=== PATIENT | female | born 1935 | race Caucasian/White ===

== ENCOUNTER → 2019-04-28 | Outpatient (CLI) | payer MEDICARE ==
[~2019-04-28] MED LIST: ASPI81TA85 PO; ATEN50TA2 PO; CALC600T31 PO; HYDR12.55 PO; MULT1TAB8 PO; POTA20TA4 PO; VITA-183 PO; ZYRT10CA PO
--- NOTE | 2019-04-28 18:01 | REP ---
Clinical: Left lower extremity pain and swelling . Technique: Pope scale and color Doppler evaluation using linear high frequency transducer. Findings: Ultrasound examination of the left lower extremity deep venous structures from the common femoral vein to the popliteal vein demonstrates normal compressibility flow and wave patterns in response to respiration and augmentation. There is no evidence for deep venous thrombosis. Impression: No evidence for deep venous thrombosis. Electronically Signed by Don Loza MD 04/28/2019 05:53 P
== END ==
LOC: M RAD 16:19
PROVIDERS: ATTEND Physician Assistant
DX: R22.42 Localized swelling, mass and lump, left lower limb (principal)

== ENCOUNTER → 2019-05-13 | Outpatient (CLI) | payer MEDICARE ==
--- NOTE | 2019-05-13 17:39 | REP ---
Urinary tract sonogram: History: Gross hematuria. Comparison: No comparison study. Findings: Scanning at the level of the urinary bladder shows no abnormality. Renal cortical echogenicity pattern is normal bilaterally and contours are smooth. There is no evidence of hydronephrosis, cyst, mass, or calculus in either kidney. The right kidney measures 10.2 x 6.0 x 4.8 cm. In the lower pole right kidney there is a 6 mm echogenic focus with acoustic shadowing which may be a intrarenal calculus. Left renal dimensions are 10.3 x 5.3 x 4.0 cm. In the lower pole left kidney there is an equivocal 2.3 mm echogenic focus without shadowing. This could be a tiny calculus. Impression: Possible intrarenal calculi. No hydronephrosis. Otherwise negative urinary tract sonography. Electronically Signed by Jas Mujica MD 05/13/2019 05:30 P
--- NOTE | 2019-05-13 17:44 | REP ---
Pelvic ultrasound for gross hematuria: Comparison is 03/12/2019. The study is performed with transabdominal imaging. The patient declined endovaginal imaging. The bladder is adequately distended. The uterus measures 544 x 3.4 x 5.0 centimeters and is atrophic and suboptimally demonstrated. There appear to be echogenic masses replacing the myometrium, compatible with degenerating fibroids. However, myometrial masses of other etiology cannot be excluded. The endometrium could not be visualized. The ovaries are not visualized. No definite adnexal masses are identified . Impression: Suboptimal study. I would recommend a repeat study including endovaginal ultrasound or pelvic MRI. Electronically Signed by Jorge Turner MD 05/13/2019 05:37 P
== END ==
LOC: M RAD 13:23
PROVIDERS: ATTEND Internal Medicine
DX: R31.0 Gross hematuria (principal); N92.5 Other specified irregular menstruation

== ENCOUNTER → 2019-05-17 | Outpatient (CLI) | payer MEDICARE ==
[2019-05-17 17:56] LABS: APPEARANCE, URINE MANUAL TURBID (CLEAR); BILIRUBIN, URINE MANUAL NEGATIVE (NEGATIVE); BLOOD URINE MANUAL POSITIVE (NEGATIVE); COLOR, URINE MANUAL RED (YELLOW); GLUCOSE, URINE (UA) MANUAL NEGATIVE (NEGATIVE); KETONE, URINE MANUAL NEGATIVE (NEGATIVE); LEUKOCYTE ESTERASE, URINE MAN POSITIVE (NEGATIVE); NITRITE, URINE MANUAL OBSCURED (NEGATIVE); PROTEIN, URINE MANUAL 3+ mg/dL (NEGATIVE); SPECIFIC GRAVITY,URINE MANUAL 1.024 (1.002-1.035); UROBILINOGEN, URINE MANUAL NORMAL (NORMAL)
[2019-05-17 17:57] LABS: BACTERIA, URINE SMALL AMOUNT; HYALINE CAST, URINE NONE SEEN /lpf (0-1); MUCUS, URINE LARGE AMOUNT (NEGATIVE); RBC, URINE TNTC /hpf (0-3); SQUAMOUS EPITHELIAL CELL URINE SMALL AMOUNT /hpf (SMALL AMT); TRIPLE PHOSPHATE CRYSTAL,URINE SMALL AMOUNT /hpf; WBC, URINE TNTC /hpf (0-3)
[2019-05-17 17:58] LABS: AMORPHOUS SEDIMENT, URINE MOD AMOUNT (NEGATIVE)
[2019-05-17 17:58] LABS: BLOOD UREA NITROGEN 15 MG/DL (7-18); CARBON DIOXIDE LEVEL 30 MEQ/L (21-32); CHLORIDE LEVEL 93 MEQ/L (98-107); CREATININE FOR GFR 0.77 MG/DL (0.55-1.30); GLOMERULAR FILTRATION RATE > 60.0 (>32); GLUCOSE, FASTING 118 MG/DL (70-100); POTASSIUM SERUM 3.7 MEQ/L (3.5-5.1); SODIUM LEVEL 131 MEQ/L (136-145)
== END ==
LOC: M SMT 14:12
PROVIDERS: ATTEND Nurse Practitioner Women's Health
DX: R31.0 Gross hematuria (principal)
CPT/HCPCS: 80048; 81000; 87086; 88108; G0463

== ENCOUNTER → 2019-05-24 | Outpatient (CLI) | payer MEDICARE ==
[~2019-05-24] MED LIST changes: +ISOVUE-370 76% 100ML VIAL (Q9967) As Ordered ONE
--- NOTE | 2019-05-24 14:54 | REP ---
CT of the abdomen and pelvis without and with IV contrast. After IV contrast, multiphase scanning is performed. A CT urogram protocol. I suspect there is a mass arising from the superior wall of the bladder measuring approximately three point 0 cm in diameter and there are calcifications within this mass. There is a 0.3 cm nonobstructive right renal lower pole calculus. No left renal calculi are identified. There are no solid renal masses. There is a 0.7 cm left renal lower pole simple cyst. There is mild bilateral diffuse renal cortical scarring. There is no perinephric stranding. There is no hydronephrosis. The adrenals are unremarkable. The visualized lower lung wheeler demonstrate atelectasis at the inferior tip of the lingula but are otherwise unremarkable. The hepatic parenchyma, gallbladder, pancreas, spleen, abdominal aorta, bowel and mesentery are unremarkable. There is no retroperitoneal adenopathy or mass. Pelvis: The uterus and adnexa are unremarkable. There is no adenopathy or ascites. The pelvic bowel loops are unremarkable. There are no lytic, blastic or destructive skeletal changes. There is grade II compression of the L1 vertebral body and grade 1 retrolisthesis of L1. There is degenerative disc disease throughout the lumbar spine. Impression: 3 cm mass arising from the dome of the bladder as described. Nonobstructive right renal calculus. Small left renal cyst. Mild bilateral renal cortical scarring. No renal solid masses. No hydronephrosis. No retroperitoneal, mesenteric or abdominal adenopathy or ascites. Electronically Signed by Jorge Turner MD 05/24/2019 02:46 P
== END ==
LOC: M RAD 13:16
PROVIDERS: ATTEND Nurse Practitioner Women's Health
DX: R31.0 Gross hematuria (principal); N32.89 Other specified disorders of bladder; N20.0 Calculus of kidney; N28.1 Cyst of kidney, acquired
CPT/HCPCS: 74178; Q9967

== ENCOUNTER → 2019-05-28 | Outpatient (REF) | payer MEDICARE ==
[~2019-05-28] MED LIST changes: +BAYE325T13 PO; +CALC1TAB42 PO; +HYDR25TAB PO; -ISOVUE-370 76% 100ML VIAL (Q9967) As Ordered ONE; +MACR100C43 PO; +NITR100C2 PO; +POTA10TA14 PO
[2019-05-28 13:16] LABS: RENAL EPITHELIAL CELLS, URINE SMALL AMOUNT /hpf; SQUAMOUS EPITHELIAL CELL URINE SMALL AMOUNT /hpf (SMALL AMT)
[2019-05-28 13:17] LABS: AMORPHOUS SEDIMENT, URINE MOD AMOUNT (NEGATIVE); BACTERIA, URINE MOD AMOUNT; HYALINE CAST, URINE NONE SEEN /lpf (0-1); TRIPLE PHOSPHATE CRYSTAL,URINE SMALL AMOUNT /hpf
[2019-05-28 13:18] LABS: WBC, URINE TNTC /hpf (0-3)
== END ==
LOC: M SMT 12:51
PROVIDERS: ATTEND Specialist
DX: R31.0 Gross hematuria (principal)
CPT/HCPCS: 51700; 52000; 87086; G0463

== ENCOUNTER → 2019-06-11 | Outpatient (REF) | payer MEDICARE | LOC: M SMT 16:47 | PROVIDERS: ATTEND Urology | DX: R31.0 Gross hematuria (principal) | CPT/HCPCS: 51701; 81002; G0463 ==

== ENCOUNTER 2019-06-12 07:00 | Inpatient (IN) | payer MEDICARE ==
[~2019-06-12] VITALS: Ht 154.9 cm; Wt 87.5 kg
[~2019-06-12 07:00] MED LIST changes: -BAYE325T13 PO; -CALC1TAB42 PO; -HYDR25TAB PO; -MACR100C43 PO; -NITR100C2 PO; -POTA10TA14 PO
[2019-06-12] MEDS ORDERED: NITR100C2 PO (07:18)
[2019-06-12] MEDS ORDERED: HYDR25TAB PO (07:18)
[2019-06-12] MEDS ORDERED: LIDOCAINE 2% 5ML JELLY UROJET TOP ONE (07:30)
--- NOTE | 2019-06-12 08:13 | REP ---
AP PORTABLE CHEST: 06/12/2019. Clinical history: Altered mental status. Findings: No prior study. Lungs hypoinflated on this frontal view. There is left ventricular enlargement and left atrial enlargement with some moderate cardiomegaly. Venous hypertension noted without grupo edema, dense consolidation or visible effusion. Degenerative changes in the spine and shoulders. The aorta is ectatic and tortuous. Impression: 1. Cardiomegaly with left atrial and ventricular enlargement, venous hypertension but no grupo edema, dense consolidation or definite effusion. Electronically Signed by Heath Riddle MD 06/12/2019 09:35 P
[2019-06-12 08:25] LABS: BASO % 0.3 % (0.0-1.0); EOS % 0.1 % (0.0-3.0); HEMATOCRIT 31.8 % (36.0-47.0); HEMOGLOBIN 11.2 g/dl (12.0-15.5); LYMPH # 0.4 10^3/uL (1.5-4.5); LYMPH % 4.2 % (24.0-44.0); MEAN CORPUSCULAR HEMOGLOBIN 28.1 pg (27.0-33.0); MEAN CORPUSCULAR HGB CONC 35.2 g/dl (32.0-36.5); MEAN CORPUSCULAR VOLUME 79.7 fl (80.0-96.0); MONO # 0.8 10^3/uL (0.0-0.8); MONO % 9.1 % (0.0-5.0); NEUTROPHILS # 7.5 10^3/uL (1.8-7.7); NEUTROPHILS % 85.3 % (36.0-66.0); PLATELET COUNT, AUTOMATED 340 10^3/uL (150-450); RED BLOOD COUNT 3.99 10^6/uL (4.00-5.40); WHITE BLOOD COUNT 8.8 10^3/uL (4.0-10.0)
[2019-06-12] MEDS ORDERED: CIPROFLOXACIN 400 MG in APPROPRIATE DILUENT 1 EA IV ONE (09:00)
[2019-06-12] MEDS ORDERED: NS 500 ML IV ONE (09:00)
--- NOTE | 2019-06-12 09:00 | REP ---
CT BRAIN WITHOUT CONTRAST: 06/12/2019. Clinical history: Altered mental status. Comparison: 01/23/2012 Findings: Contrast images show lateral ventricles midline, symmetric, mildly dilated proportionate to the diffuse cerebral atrophy, all of this age appropriate. Sulcal prominence and cortical atrophy mildly progressed since the prior study seven years ago. Basal ganglia is symmetric with some heterogeneous periventricular deep central and subcortical white matter changes bilaterally suggesting chronic small vessel ischemic disease of aging. 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 No intracranial hemorrhage, acute infarct, mass or mass effect. Brainstem and cerebellum are unremarkable. Basal cisterns intact. Mastoids and sinuses grossly intact. Calvarium is unremarkable. Impression: 1. Ventriculomegaly and cortical atrophy, proportionate and age appropriate. 2. Chronic small vessel white matter ischemic changes. 3. No acute infarct, intracranial hemorrhage, mass, mass effect or edema. No extra-axial fluid collection. 4. Skull base and calvarium without acute bony finding. Electronically Signed by Heath Riddle MD 06/12/2019 09:37 P
[2019-06-12 09:07] LABS: AMPHETAMINES LEVEL URINE NEGATIVE (NEGATIVE); BARBITURATES URINE NEGATIVE (NEGATIVE); BENZODIAZEPINES URINE NEGATIVE (NEGATIVE); CANNABINOIDS URINE NEGATIVE (NEGATIVE); COCAINE METABOLITE URINE NEGATIVE (NEGATIVE); METHADONE URINE NEGATIVE (NEGATIVE); OPIATES URINE NEGATIVE (NEGATIVE); PHENCYCLIDINE URINE NEGATIVE (NEGATIVE)
[2019-06-12 09:11] LABS: ALBUMIN 2.9 GM/DL (3.2-5.2); ALT/SGPT 12 U/L (12-78); BILIRUBIN,DIRECT 0.2 MG/DL (0.0-0.2); BILIRUBIN,TOTAL 0.6 MG/DL (0.2-1.0); BLOOD UREA NITROGEN 21 MG/DL (7-18); CALCIUM LEVEL 9.7 MG/DL (8.8-10.2); CARBON DIOXIDE LEVEL 30 MEQ/L (21-32); CHLORIDE LEVEL 76 MEQ/L (98-107); CK-MB VALUE MASS 2.7 NG/ML (<3.6); CPK CREATINE PHOSPHOKINASE 87 U/L (26-192); CREATININE FOR GFR 0.99 MG/DL (0.55-1.30); GLOMERULAR FILTRATION RATE 57.2 (>32); GLUCOSE, FASTING 114 MG/DL (70-100); POTASSIUM SERUM 3.2 MEQ/L (3.5-5.1); SODIUM LEVEL 118 MEQ/L (136-145); THYROID STIMULATING HORMONE 0.782 uIU/ML (0.358-3.740); TOTAL PROTEIN 6.5 GM/DL (6.4-8.2); TROPONIN I < 0.02 NG/ML (< 0.10)
[2019-06-12 09:15] LABS: ACETAMINOPHEN LEVEL < 2.0 UG/ML (10.0-30.0); FREE T4 1.76 NG/DL (0.76-1.46); SALICYLATE LEVEL < 1.7 MG/DL (5.0-30.0)
[2019-06-12 09:16] LABS: ETHYL ALCOHOL (ETHANOL) < 0.003 % (0.000-0.010)
[2019-06-12 09:27] LABS: OSMOLALITY SERUM 247 MOSM/KG (280-301)
[2019-06-12] MEDS ORDERED: PIPERACILLIN/TAZOBACTAM SOD 4.5 GM in D5W MINI-BAG PLUS 50 ML IV ONE (09:30)
[2019-06-12] MEDS ORDERED: KCL 10MEQ/100ML SWI (KRUN) 10 MEQ in APPROPRIATE DILUENT 1 EA IV ONE (09:30)
[2019-06-12] MEDS ORDERED: ISOVUE-370 76% 100ML VIAL (Q9967) As Ordered ONE (09:30)
[2019-06-12 09:31] LABS: MAGNESIUM LEVEL 1.9 MG/DL (1.8-2.4)
[2019-06-12 09:32] LABS: CREATININE,RANDOM URINE 25.9 MG/DL
[2019-06-12] MEDS ORDERED: CALC1TAB42 PO (09:52)
[2019-06-12] MEDS ORDERED: BAYE325T13 PO (09:52)
[2019-06-12] MEDS ORDERED: POTA10TA14 PO (09:53)
[2019-06-12] MEDS ORDERED: MACR100C43 PO (09:54)
--- NOTE | 2019-06-12 11:06 | REP ---
CT ABDOMEN AND PELVIS WITHOUT AND WITH CONTRAST: 06/12/2019. Clinical history: Hematuria. Comparison 05/24/2019 CT. Technique: Precontrast imaging through the abdomen pelvis followed by a bolus of 100 mL of Isovue 370 and scanning through the abdomen pelvis at equilibrium and delayed phases. Coronal and sagittal reconstructions with 3-D surface renderings with reconstruction rotated about the longitudinal axis of the body. Findings: CT abdomen: The lung bases show dependent atelectatic changes and some curvilinear fibrosis in the medial basal segment of the left lobe. Heart is enlarged with left atrial ventricular enlargement. No pericardial thickening or effusion. Small hiatal hernia suspected. The liver and spleen are without acute findings. There is no biliary dilatation. Gallbladder without calcified stone. Pancreas shows no mass or ductal dilatation. No peripancreatic inflammatory change. Trace amount of ascites about the liver and in the peroneal gutter on the left. There has developed pancolitis in the interval from the CT [address] slices shows no perforation or free air. No visible abscess. Small bowel loops are not dilated. The aorta shows atherosclerotic calcifications without aneurysm. No periaortic pathologic sized adenopathy. Adrenal glands unchanged. The cortical calcification seen lower pole right kidney unchanged. There is no hydronephrosis, solid renal mass or hydroureter. No ureteral stone. Bones unchanged. CT pelvis: Cook catheter in the bladder which is collapsed. There is a small amount of contrast in the bladder and evidence of a bladder wall mass with poor distension of the bladder. There is some air within the bladder which may be due to Cook insertion. The masses along the superior aspect of the bladder with thickening of that bladder wall up to 2 cm, it is irregular in shape 3.0 x 5.0 x 5.5 cm overall. Ureters are not abnormally dilated in the pelvis. No definite stone. Colitis in the distal left colon, sigmoid and rectum also with filtration of pericolonic fat. Impression: 1. Bladder wall mass superiorly which is to the right of midline and about 3.0 x 5.0 x 5.5 cm in greatest diameters. There are irregular margins. No change from the CT 3 weeks ago for this finding. 2. Some air in the bladder, likely related to Cook insertion and small amount of contrast. Findings highly suspicious for a bladder malignancy. This is the non-dependent portion of the bladder. 3. There is no hydronephrosis, hydroureter, renal or ureteral calculi. Calcification in the right kidney is in the cortex not the collecting system but unchanged. 4. Interval development of diffuse colitis, inflammatory changes in the mesentery. There is some ascites. No perforation or free air. Electronically Signed by Heath Riddle MD 06/12/2019 09:48 P
--- NOTE | 2019-06-12 11:08 | HPEPDOC ---
General Date of Admission 06/12/19 Date of Service: Jun 12, 2019 Chief Complaint The patient is a 83-year-old female admitted with a reason for visit of Dizziness/Weakness. Source: RN/MD Exam Limitations: Clinical conditions Timing/Duration: Unsure Severity: Other (unknown) Associated Symptoms: Unobtainable, Other History of Present Illness This is 83 years old white female with past medical history of possibly hypertension, hyperlipidemia, unable to obtained history as nobody is available and patient is altered mental status. As per ED physician, Dr. Pope. She obtained history from her son. He takes care of for her and she was recently diagnosed with UTI on for was being treated. Patient was found to be on the floor for unknown time. And has altered mental status. No other history is available. Patient being admitted with the diagnosis of hyponatremia and UTI, unknown history of drug abuse or alcohol abuse or taking illicit medications Home Medications Scheduled Aspirin (Aspirin) 325 Mg Tablet, 325 MG PO DAILY, (Reported) Atenolol (Atenolol) 50 Mg Tab, 50 MG PO DAILY, (Reported) Calcium Carbonate/Vitamin D3 (Calcium 500-Vit D3 600 Tablet) 1 Each Tablet, 1 TAB PO BID, (Reported) Hydrochlorothiazide (Hydrochlorothiazide) 25 Mg Tablet, 25 MG PO DAILY, (Reported) Multivitamin (Multi-Vitamin Daily) 1 Tab Tab, 1 TAB PO DAILY, (Reported) Nitrofurantoin Monohyd/M-Cryst (Macrobid 100 mg Capsule) 100 Mg Capsule, 100 MG PO BID, (Reported) STARTED 06/11 Potassium Chloride (Potassium Chloride) 10 Meq Tablet.er, 20 MEQ PO DAILY, (Reported) Allergies Coded Allergies: No Known Allergies (Unverified , 06/12/19) Past Medical History Medical History Hypertension, hyperlipidemia Surgical History Not available Family History Significant Family History: Other Social History * Smoker: other Alcohol: other Drugs: other (, unknown) A-FIB/CHADSVASC A-FIB History Current/History of A-Fib/PAF?: No Review of Systems Constitutional: Reports: Other (, unable to obtained review of systems secondary to patient's physical and mental status) Physical Examination General Exam: Positive: Other (, lethargic, not does not respond to vocal or tactile stimuli) ENT Exam: Positive: Atraumatic, Mucous membr. moist/pink Neck Exam: Positive: Supple Chest Exam: Positive: Clear to auscultation, Normal air movement Heart Exam: Positive: Rate Normal, Normal S1, Normal S2 Abdomen Exam: Positive: Normal bowel sounds Extremity Exam: Positive: Normal pulses Skin Exam: Positive: Nl turgor and temperature Neuro Exam: Positive: Other (, unable to do neuro exam secondary to patient mental status) Vital Signs Vital Signs Date Time Temp Pulse Resp B/P (MAP) Pulse Ox O2 Delivery O2 Flow Rate FiO2 06/12/19 08:51 99.4 06/12/19 07:20 100 20 163/72 (102) 96 Room Air Laboratory Data Labs 24H Laboratory Tests 2 06/12/19 08:10: Urine Random Osmolality 296L, Urine Random Creatinine 25.9, Urine Random Sodium 21 06/12/19 08:11: Immature Granulocyte % (Auto) 1.0, White Blood Count 8.8, Red Blood Count 3.99L, Hemoglobin 11.2L, Hematocrit 31.8L, Mean Corpuscular Volume 79.7L, Mean Corpuscular Hemoglobin 28.1, Mean Corpuscular Hemoglobin Concent 35.2, Red Cell Distribution Width 13.2, Platelet Count 340, Neutrophils (%) (Auto) 85.3H, Lymphocytes (%) (Auto) 4.2L, Monocytes (%) (Auto) 9.1H, Eosinophils (%) (Auto) 0.1, Basophils (%) (Auto) 0.3, Neutrophils # (Auto) 7.5, Lymphocytes # (Auto) 0.4L, Monocytes # (Auto) 0.8, Eosinophils # (Auto) 0.0, Basophils # (Auto) 0.0, Nucleated Red Blood Cells % (auto) 0.0, Urine Color LARISA, Urine Appearance TURBIDH, Urine pH 7.0, Urine Specific [place] 1.008, Urine Protein 2+H, Urine Glucose (UA) NEGATIVE, Urine Ketones TRACEH, Urine Blood 3+H, Urine Nitrite NEGATIVE, Urine Bilirubin NEGATIVE, Urine Urobilinogen 0.2, Urine Leukocyte Esterase 2+H, Urine WBC (Auto) TNTCH, Urine RBC (Auto) TNTCH, Urine Hyaline Casts (Auto) 0, Urine Bacteria (Auto) 1+H, Urine Squamous Epithelial Cells 3, Urine Amorphous Sediment SMALLH, Urine Sperm (Auto) , Anion Gap 12, Glomerular Filtration Rate 57.2, Osmolality 247L, Lactic Acid Level 1.3, Calcium Level 9.7, Magnesium Level 1.9, Aspartate Amino Transf (AST/SGOT) 14, Alanine Aminotransferase (ALT/SGPT) 12, Alkaline Phosphatase 83, Total Bilirubin 0.6, Direct Bilirubin 0.2, Ammonia < 10, Total Creatine Kinase 87, Creatine Kinase MB 2.7, Creatine Kinase MB Relative Index 3.10, Troponin I < 0.02, Total Protein 6.5, Albumin 2.9L, Albumin/Globulin Ratio 0.81L, Thyroid Stimulating Hormone (TSH) 0.782, Free Thyroxine 1.76H, Salicylates Level < 1.7L, Urine Amphetamines Screen NEGATIVE, Urine Benzodiazepines Screen NEGATIVE, Urine Opiates Screen NEGATIVE, Urine Methadone Screen NEGATIVE, Acetaminophen Level < 2.0L, Urine Barbiturates Screen NEGATIVE, Urine Phencyclidine Screen NEGATIVE, Urine Cocaine Metabolite Screen NEGATIVE, Urine Cannabinoids Screen NEGATIVE, Ethyl Alcohol Level < 0.003 06/12/19 08:35: Bedside Glucose (Misc Panel) 122H 06/12/19 08:36: POC Glucose (Misc Panel) 117H, POC Sodium (Misc Panel) 115*L, POC Potassium (Misc Panel) 2.9*L, POC Chloride (Misc Panel) 75L, POC Total CO2 (Misc Panel) 28.0H, POC Blood Urea Nitrogen (Misc Panel 21, POC Ionized Calcium (Misc Panel) 4.7, POC Creatinine (Misc Panel) 1.2, POC Hematocrit (Misc Panel) 35.0L CBC/BMP Laboratory Tests 06/12/19 08:11 Red Blood Count 3.99 L, Mean Corpuscular Volume 79.7 L, Mean Corpuscular Hemoglobin 28.1, Mean Corpuscular Hemoglobin Concent 35.2, Red Cell Distribution Width 13.2, Neutrophils (%) (Auto) 85.3 H, Lymphocytes (%) (Auto) 4.2 L, Monocytes (%) (Auto) 9.1 H, Eosinophils (%) (Auto) 0.1, Basophils (%) (Auto) 0.3, Neutrophils # (Auto) 7.5, Lymphocytes # (Auto) 0.4 L, Monocytes # (Auto) 0.8, Eosinophils # (Auto) 0.0, Basophils # (Auto) 0.0 Microbiology Microbiology 06/12/19 Blood Culture, Received Pending 06/12/19 Blood Culture, Received Pending 06/12/19 Urine Culture, Received Pending Problems (1) Altered mental status Status: Acute Problem Text: Most likely secondary to delirium which is most likely secondary to UTI and hyponatremia Neuro check every 4 hours Seizures precautions Telemetry monitoring Continuous pulse ox O2 support. If pulse ox is less than 92% IV fluids normal saline at 70 mL per hour MRI of brain. If the symptoms do not resolve Neuro consult if the symptoms do not resolve (2) Hyponatremia Status: Acute Problem Text: Unknown etiology Could be secondary to UTI IV fluids normal saline at 70 mL per hour Potassium supplement already given by ED BMP every 6 hours Will slowly correct serum sodium level Monitor potassium and correct as needed Strict I and O's Nothing by mouth (3) Urinary tract infection Status: Acute Problem Text: Urine cultures ordered Patient was started on Zosyn. We'll continue the same Change in antibiotics as needed Plan / VTE VTE Prophylaxis Ordered?: Yes RAQUEL ROSEN MD Jun 12, 2019 11:08
[2019-06-12] MEDS: NS 1,000 ML IV SCH ×3 (12:09→20:02)
[2019-06-12] MEDS: ENOXAPARIN 40 MG/0.4 ML SYRINGE (J1650) SC SCH (12:35)
[2019-06-12 12:43] LABS: BLOOD UREA NITROGEN 18 MG/DL (7-18); CALCIUM LEVEL 9.2 MG/DL (8.8-10.2); CARBON DIOXIDE LEVEL 30 MEQ/L (21-32); CHLORIDE LEVEL 83 MEQ/L (98-107); CREATININE FOR GFR 0.84 MG/DL (0.55-1.30); GLOMERULAR FILTRATION RATE > 60.0 (>32); GLUCOSE, FASTING 96 MG/DL (70-100); POTASSIUM SERUM 2.7 MEQ/L (3.5-5.1); SODIUM LEVEL 122 MEQ/L (136-145)
[2019-06-12 16:00] VITALS: BP 116/58
[2019-06-12] MEDS: PIPERACILLIN/TAZOBACTAM SOD 3.375 GM in D5W MINI-BAG PLUS 50 ML IV SCH ×2 (16:16→21:45)
[2019-06-12 16:45] LABS: BLOOD UREA NITROGEN 15 MG/DL (7-18); CALCIUM LEVEL 8.7 MG/DL (8.8-10.2); CARBON DIOXIDE LEVEL 28 MEQ/L (21-32); CHLORIDE LEVEL 86 MEQ/L (98-107); CREATININE FOR GFR 0.78 MG/DL (0.55-1.30); GLOMERULAR FILTRATION RATE > 60.0 (>32); GLUCOSE, FASTING 96 MG/DL (70-100); POTASSIUM SERUM 2.8 MEQ/L (3.5-5.1); SODIUM LEVEL 124 MEQ/L (136-145)
[2019-06-12] MEDS ORDERED: POTASSIUM CHLORIDE 10 MEQ SR TABLET PO ONE (17:30)
--- NOTE | 2019-06-12 19:28 | ECGEPIP ---
[facility] - ED Test Date: 2019-06-12 Pat Name: ABIMAEL PRATT Department: Room: - Gender: Female [employer] Adjunct Professor: TC : [id number] Requested By: Geovanni Padilla Order Number: [id number] Reading MD: Geovanni Padilla Measurements Intervals [place] Rate: 79 P: 91 AR: 210 QRS: -21 QRSD: 116 T: 0 QT: 414 QTc: 475 Interpretive Statements SINUS RHYTHM WITH FIRST DEGREE AV BLOCK WITH FREQUENT SUPRAVENTRICULAR PREMATURE COMP COMPLEXES BORDERLINE LEFT AXIS DEVIATION MODERATE INTRAVENTRICULAR CONDUCTION DELAY MODERATE VOLTAGE CRITERIA FOR LVH, CONSIDER NORMAL VARIANT NONSPECIFIC T-WAVE ABNORMALITY DELAYED R WAVE PROGRESSION PROLONGED QTC NO PRIOR ECG FOR COMPARISON Electronically Signed on 06-12-2019 19:28:24 EDT by Geovanni Padilla
[2019-06-12 20:00] VITALS: BP 129/59
[2019-06-12 23:47] LABS: BLOOD UREA NITROGEN 13 MG/DL (7-18); CALCIUM LEVEL 9.4 MG/DL (8.8-10.2); CARBON DIOXIDE LEVEL 31 MEQ/L (21-32); CHLORIDE LEVEL 89 MEQ/L (98-107); CREATININE FOR GFR 0.71 MG/DL (0.55-1.30); GLOMERULAR FILTRATION RATE > 60.0 (>32); GLUCOSE, FASTING 102 MG/DL (70-100); POTASSIUM SERUM 2.9 MEQ/L (3.5-5.1); SODIUM LEVEL 125 MEQ/L (136-145)
[2019-06-13] VITALS: BP 144/66
[2019-06-13] MEDS: KCL 10MEQ/100ML SWI (KRUN) 10 MEQ in APPROPRIATE DILUENT 1 EA IV SCH ×3 (00:16→02:11)
[2019-06-13] MEDS: POTASSIUM CHLORIDE 10 MEQ SR TABLET PO SCH ×2 (00:16→03:55)
[2019-06-13] MEDS: PIPERACILLIN/TAZOBACTAM SOD 3.375 GM in D5W MINI-BAG PLUS 50 ML IV SCH ×4 (03:54→21:09)
[2019-06-13 04:00] VITALS: BP 118/56
[2019-06-13 05:25] LABS: HEMATOCRIT 29.8 % (36.0-47.0); HEMOGLOBIN 10.1 g/dl (12.0-15.5); MEAN CORPUSCULAR HGB CONC 33.9 g/dl (32.0-36.5); MEAN CORPUSCULAR VOLUME 82.5 fl (80.0-96.0); PLATELET COUNT, AUTOMATED 362 10^3/uL (150-450); RED BLOOD COUNT 3.61 10^6/uL (4.00-5.40); WHITE BLOOD COUNT 8.1 10^3/uL (4.0-10.0)
[2019-06-13 05:55] LABS: ALBUMIN 2.1 GM/DL (3.2-5.2); ALT/SGPT 8 U/L (12-78); BILIRUBIN,TOTAL 0.4 MG/DL (0.2-1.0); BLOOD UREA NITROGEN 12 MG/DL (7-18); CALCIUM LEVEL 8.8 MG/DL (8.8-10.2); CARBON DIOXIDE LEVEL 30 MEQ/L (21-32); CHLORIDE LEVEL 92 MEQ/L (98-107); CREATININE FOR GFR 0.78 MG/DL (0.55-1.30); GLOMERULAR FILTRATION RATE > 60.0 (>32); GLUCOSE, FASTING 126 MG/DL (70-100); MAGNESIUM LEVEL 1.9 MG/DL (1.8-2.4); POTASSIUM SERUM 3.7 MEQ/L (3.5-5.1); SODIUM LEVEL 127 MEQ/L (136-145); TOTAL PROTEIN 5.3 GM/DL (6.4-8.2)
[2019-06-13 08:00] VITALS: BP 106/58
--- NOTE | 2019-06-13 09:56 | IPNPDOC ---
Subjective Date Seen The patient was seen on 06/13/19. Subjective Chief Complaint/HPI Patient feels much better. She is alert, oriented 3, in no apparent distress, offers no new complaints at the present time General: Denies: ROS Unobtainable, Chills, Night Sweats, Fatigue, Malaise, Normal Appetite, Other Symptoms Constitutional: Denies: Chills, Fever, Malaise, Night Sweats, Weakness, Fatigue, Weight Loss, Lethargy, Other Eyes: Denies: Pain, Vision change, Conjunctivae inflammation, Eyelid inflammation, Redness, Other ENT: Denies: Head Aches, Ear Pain, Dysphagia, Sinus Congestion, Post Nasal Drip, Sore Throat, Epistaxis, Other Symptoms Skin: Denies: Rash, Lesions, Jaundice, Bruising, Itching, Dry, Breakdown, Nail Changes, Other Pulmonary: Denies: Dyspnea, Cough, Pleuritic Chest Pain, Other Symptoms Cardiovascular: Denies: Chest Pain, Palpitations, Orthopnea, Paroxysmal Noc. Dyspnea, Edema, Lt Headedness, Other Symptoms Gastrointestinal: Denies: Nausea, Vomiting, Abdominal Pain, Diarrhea, Constipation, Melena, Hematochezia, Other Symptoms Genitourinary: Denies: Dysuria, Frequency, Incontinence, Hematuria, Retention, Other Symptoms Hematologic: Denies: Bruising, Bleeding Excessively, Petecchia, Purpura, Enlarged Lymph Nodes, Other Hematologic Endocrine: Denies: Polydipsia, Polyphagia, Polyuria, Heat Intolerance, Cold Intolerance, Other Endocrine Sx Musculoskeletal: Denies: Neck Pain, Back Pain, Shoulder Pain, Arm Pain, Hand Pain, Leg Pain, Foot Pain, Joint Pain, Muscle Pain, Spasms, Other Symptoms Neurological: Denies: Weakness, Numbness, Incoordination, Change in speech, Confusion, Seizures, Other Symptoms Psych: Denies: Mood Normal, Anxiety, Depression, Memory Issues, Thoughts of Self Harm, Anger, Thoughts of Harming Other, Other Psych Objective Physical Examination General Exam: Positive: Other (, lethargic, not does not respond to vocal or ta ctile stimuli) ENT Exam: Positive: Atraumatic, Mucous membr. moist/pink Neck Exam: Positive: Supple Chest Exam: Positive: Clear to auscultation, Normal air movement Heart Exam: Positive: Rate Normal, Normal S1, Normal S2 Abdomen Exam: Positive: Normal bowel sounds Extremity Exam: Positive: Normal pulses Skin Exam: Positive: Nl turgor and temperature Neuro Exam: Positive: Other (, unable to do neuro exam secondary to patient mental status) Assessment /Plan Problems (1) Altered mental status Status: Resolved Problem Text: Patient is awake, alert, oriented 3 Altered mental status is completely resolved DC seizure precautions DC telemetry Activity out of bed as tolerated Physical therapy evaluation Transferred to medical floor (2) Hyponatremia Status: Acute Problem Text: Progressively resolving Serum sodium is 127. Today Potassium is 3.7 Continue IV fluids at the present rate BMP in a.m. (3) Urinary tract infection Status: Acute Problem Text: Urine cultures still pending Blood cultures in one bottle shows gram-positive cocci clusters, most likely contamination Continue Zosyn until blood cultures are back (4) Bladder carcinoma Status: Chronic Problem Text: Patient is aware about bladder carcinoma, she has seen Dr. Portillo and is a scheduled to follow with him for cystoscopy and biopsy Further workup can be done as an outpatient with Dr. Portillo when she follows up No further intervention inpatient Plan/VTE VTE Prophylaxis Ordered?: Yes VS, I&O, 24H, [facility] Vital Signs/I&O Vital Signs Date Time Temp Pulse Resp B/P (MAP) Pulse Ox O2 Delivery O2 Flow Rate FiO2 06/13/19 08:00 97.8 75 18 106/58 (74) 96 06/12/19 14:30 Room Air I&O- Last 24 Hours up to 6 AM 06/13/19 06:00 Intake Total 2230 ml Output Total 2005 ml Balance 225 ml Laboratory Data 24H LABS Laboratory Tests 2 06/12/19 11:55: Anion Gap 9, Glomerular Filtration Rate > 60.0, Blood Urea Nitrogen 18, Creatinine 0.84, Sodium Level 122L, Potassium Level 2.7*L, Chloride Level 83L, Carbon Dioxide Level 30, Calcium Level 9.2 06/12/19 16:08: Anion Gap 10, Glomerular Filtration Rate > 60.0, Blood Urea Nitrogen 15, Creatinine 0.78, Sodium Level 124L, Potassium Level 2.8*L, Chloride Level 86L, Carbon Dioxide Level 28, Calcium Level 8.7L 06/12/19 22:52: Anion Gap 5L, Glomerular Filtration Rate > 60.0, Blood Urea Nitrogen 13, Creatinine 0.71, Sodium Level 125L, Potassium Level 2.9*L, Chloride Level 89L, Carbon Dioxide Level 31, Calcium Level 9.4 06/13/19 04:57: Anion Gap 5L, Glomerular Filtration Rate > 60.0, Blood Urea Nitrogen 12, Creatinine 0.78, Sodium Level 127L, Potassium Level 3.7#, Chloride Level 92L, Carbon Dioxide Level 30, Calcium Level 8.8, Nucleated Red Blood Cells % (auto) 0.0, Aspartate Amino Transf (AST/SGOT) 15, Alanine Aminotransferase (ALT/SGPT) 8L, Alkaline Phosphatase 63, Total Bilirubin 0.4, Total Protein 5.3L, Albumin 2.1#L, Magnesium Level 1.9, Albumin/Globulin Ratio 0.66L CBC/BMP Laboratory Tests 06/12/19 11:55 Calcium Level 9.2 06/12/19 16:08 Calcium Level 8.7 L 06/12/19 22:52 Calcium Level 9.4 06/13/19 04:57 Calcium Level 8.8, Red Blood Count 3.61 L, Mean Corpuscular Volume 82.5, Mean Corpuscular Hemoglobin 28.0, Mean Corpuscular Hemoglobin Concent 33.9, Red Cell Distribution Width 13.3, Aspartate Amino Transf (AST/SGOT) 15, Alanine Aminotransferase (ALT/SGPT) 8 L, Alkaline Phosphatase 63, Total Bilirubin 0.4, Total Protein 5.3 L, Albumin 2.1 #L Microbiology Microbiology 06/12/19 Blood Culture - Preliminary, Resulted 06/12/19 Blood Culture - Preliminary, Resulted No growth after 24 hours . All specim... 06/12/19 Urine Culture, Received Pending RAQUEL ROSEN MD Jun 13, 2019 09:56
[2019-06-13] MEDS: ASPIRIN 325 MG TAB PO SCH (10:40)
[2019-06-13] MEDS: ATENOLOL 50 MG TAB PO SCH (10:41)
[2019-06-13] MEDS: ENOXAPARIN 40 MG/0.4 ML SYRINGE (J1650) SC SCH (10:41)
[2019-06-13 11:21] LABS: BLOOD UREA NITROGEN 12 MG/DL (7-18); CARBON DIOXIDE LEVEL 26 MEQ/L (21-32); CHLORIDE LEVEL 95 MEQ/L (98-107); CREATININE FOR GFR 0.68 MG/DL (0.55-1.30); GLOMERULAR FILTRATION RATE > 60.0 (>32); GLUCOSE, FASTING 102 MG/DL (70-100); POTASSIUM SERUM 4.2 MEQ/L (3.5-5.1); SODIUM LEVEL 128 MEQ/L (136-145)
[2019-06-13] MEDS: NS 1,000 ML IV SCH (12:50)
[2019-06-13] MEDS: SODIUM CHLORIDE 1 GM TAB PO SCH ×2 (13:47→21:09)
[2019-06-13] MEDS: ONDANSETRON 4 MG TAB (S0181) PO PRN (14:08)
[2019-06-13] MEDS: D5W/0.45% SODIUM CHLORIDE 1,000 ML IV SCH ×2 (14:15→23:16)
[2019-06-13 16:00] VITALS: BP 91/49
[2019-06-13] MEDS ORDERED: SODIUM CHLORIDE 0.45% 1000 ML IV ONE (18:15)
[2019-06-13 20:00] VITALS: BP 95/54
[2019-06-13 22:00] VITALS: BP 94/60
[2019-06-14 00:39] VITALS: BP 103/51
[2019-06-14 03:36] VITALS: BP 100/52
[2019-06-14] MEDS: PIPERACILLIN/TAZOBACTAM SOD 3.375 GM in D5W MINI-BAG PLUS 50 ML IV SCH (03:52)
[2019-06-14] MEDS: D5W/0.45% SODIUM CHLORIDE 1,000 ML IV SCH (03:52)
[2019-06-14 04:13] LABS: HEMATOCRIT 29.3 % (36.0-47.0); HEMOGLOBIN 9.5 g/dl (12.0-15.5); MEAN CORPUSCULAR HEMOGLOBIN 27.5 pg (27.0-33.0); MEAN CORPUSCULAR HGB CONC 32.4 g/dl (32.0-36.5); MEAN CORPUSCULAR VOLUME 84.9 fl (80.0-96.0); PLATELET COUNT, AUTOMATED 413 10^3/uL (150-450); RED BLOOD COUNT 3.45 10^6/uL (4.00-5.40); WHITE BLOOD COUNT 8.8 10^3/uL (4.0-10.0)
[2019-06-14 04:26] LABS: BLOOD UREA NITROGEN 12 MG/DL (7-18); CALCIUM LEVEL 8.4 MG/DL (8.8-10.2); CARBON DIOXIDE LEVEL 27 MEQ/L (21-32); CHLORIDE LEVEL 95 MEQ/L (98-107); CREATININE FOR GFR 0.67 MG/DL (0.55-1.30); GLOMERULAR FILTRATION RATE > 60.0 (>32); GLUCOSE, FASTING 123 MG/DL (70-100); POTASSIUM SERUM 3.9 MEQ/L (3.5-5.1); SODIUM LEVEL 127 MEQ/L (136-145)
[2019-06-14 06:00] VITALS: BP 106/53
[2019-06-14 07:59] VITALS: BP 111/55
[2019-06-14] MEDS: ENOXAPARIN 40 MG/0.4 ML SYRINGE (J1650) SC SCH (08:01)
[2019-06-14] MEDS: ASPIRIN 325 MG TAB PO SCH (08:01)
[2019-06-14] MEDS: SODIUM CHLORIDE 1 GM TAB PO SCH ×2 (08:01→20:29)
[2019-06-14] MEDS: ATENOLOL 50 MG TAB PO SCH (08:01)
[2019-06-14] MEDS: NS 1,000 ML IV SCH ×2 (08:02→23:45)
[2019-06-14] MEDS: AMPICILLIN SOD/SULBACTAM SOD 1.5 GM in D5W MINI-BAG PLUS 50 ML IV SCH ×3 (09:49→20:29)
--- NOTE | 2019-06-14 11:00 | IPNPDOC ---
Subjective Date Seen The patient was seen on 06/14/19. Subjective Chief Complaint/HPI Patient offers no new complaints, feeling much better, still feels tired and worried about her son General: Reports: Fatigue; Denies: ROS Unobtainable, Chills, Night Sweats, Malaise, Normal Appetite, Other Symptoms Constitutional: Denies: Chills, Fever, Malaise, Night Sweats, Weakness, Fatigue, Weight Loss, Lethargy, Other Eyes: Denies: Pain, Vision change, Conjunctivae inflammation, Eyelid inflammation, Redness, Other ENT: Denies: Head Aches, Ear Pain, Dysphagia, Sinus Congestion, Post Nasal Drip, Sore Throat, Epistaxis, Other Symptoms Skin: Denies: Rash, Lesions, Jaundice, Bruising, Itching, Dry, Breakdown, Nail Changes, Other Pulmonary: Denies: Dyspnea, Cough, Pleuritic Chest Pain, Other Symptoms Cardiovascular: Denies: Chest Pain, Palpitations, Orthopnea, Paroxysmal Noc. Dyspnea, Edema, Lt Headedness, Other Symptoms Gastrointestinal: Denies: Nausea, Vomiting, Abdominal Pain, Diarrhea, Constipation, Melena, Hematochezia, Other Symptoms Musculoskeletal: Denies: Neck Pain, Back Pain, Shoulder Pain, Arm Pain, Hand Pain, Leg Pain, Foot Pain, Joint Pain, Muscle Pain, Spasms, Other Symptoms Neurological: Denies: Weakness, Numbness, Incoordination, Change in speech, Confusion, Seizures, Other Symptoms Objective Physical Examination General Exam: Positive: Other (, lethargic, not does not respond to vocal or tactile stimuli) ENT Exam: Positive: Atraumatic, Mucous membr. moist/pink Neck Exam: Positive: Supple Chest Exam: Positive: Clear to auscultation, Normal air movement Heart Exam: Positive: Rate Normal, Normal S1, Normal S2 Abdomen Exam: Positive: Normal bowel sounds Extremity Exam: Positive: Normal pulses Skin Exam: Positive: Nl turgor and temperature Neuro Exam: Positive: Other (, unable to do neuro exam secondary to patient mental status) Assessment /Plan Problems (1) Altered mental status Status: Resolved Problem Text: Patient is awake, alert, oriented 3 Altered mental status is completely resolved DC seizure precautions DC telemetry Activity out of bed as tolerated Physical therapy evaluation DC Cook Patient will be transferred to medical floor Home versus subacute area facility (2) Hyponatremia Status: Acute Problem Text: Progressively resolving Serum sodium is 127. Today Potassium is 3.7 Restart IV fluids normal saline at 70 mL per hour . Labs in a.m. (3) Urinary tract infection Status: Acute Problem Text: Urine cultures show aerococci Which is sensitive to penicillins DC Zosyn Start Unasyn (4) Bladder carcinoma Status: Chronic Problem Text: Patient is aware about bladder carcinoma, she has seen Dr. Portillo and is a scheduled to follow with him for cystoscopy and biopsy Further workup can be done as an outpatient with Dr. Portillo when she follows up No further intervention inpatient Plan/VTE VTE Prophylaxis Ordered?: Yes VS, I&O, 24H, Fishbone Vital Signs/I&O Vital Signs Date Time Temp Pulse Resp B/P (MAP) Pulse Ox O2 Delivery O2 Flow Rate FiO2 06/14/19 08:01 67 111/55 06/14/19 07:59 98.8 16 95 06/12/19 14:30 Room Air I&O- Last 24 Hours up to 6 AM 06/14/19 06:00 Intake Total 3465 ml Output Total 935 ml Balance 2530 ml Laboratory Data 24H LABS Laboratory Tests 2 06/14/19 03:31: Nucleated Red Blood Cells % (auto) 0.0, Anion Gap 5L, Glomerular Filtration Rate > 60.0, Blood Urea Nitrogen 12, Creatinine 0.67, Sodium Level 127L, Potassium Level 3.9, Chloride Level 95L, Carbon Dioxide Level 27, Calcium Level 8.4L CBC/BMP Laboratory Tests 06/14/19 03:31 Red Blood Count 3.45 L, Mean Corpuscular Volume 84.9, Mean Corpuscular Hemoglobin 27.5, Mean Corpuscular Hemoglobin Concent 32.4, Red Cell Distribution Width 13.9, Calcium Level 8.4 L Microbiology Microbiology 06/12/19 Blood Culture - Preliminary, Resulted 06/12/19 Blood Culture - Preliminary, Resulted No Growth after 48 hours. All Specime... 06/12/19 Urine Culture - Final, Complete Aerococcus RAQUEL Cruz MD Jun 14, 2019 11:00
[2019-06-14 16:30] VITALS: BP 136/70
[2019-06-14 22:00] VITALS: BP 137/68
[2019-06-15] MEDS: AMPICILLIN SOD/SULBACTAM SOD 1.5 GM in D5W MINI-BAG PLUS 50 ML IV SCH ×4 (02:15→20:41)
[2019-06-15] MEDS ORDERED: ACETAMINOPHEN 650MG ER TAB (TYLENOL ARTHRITIS) PO PRN (04:15)
[2019-06-15] MEDS: ACETAMINOPHEN TAB 650MG DOSE (2X325MG) PO PRN ×2 (04:26→12:50)
[2019-06-15 06:00] VITALS: BP 120/80
[2019-06-15 06:51] LABS: HEMATOCRIT 29.5 % (36.0-47.0); HEMOGLOBIN 9.8 g/dl (12.0-15.5); MEAN CORPUSCULAR HEMOGLOBIN 28.2 pg (27.0-33.0); MEAN CORPUSCULAR HGB CONC 33.2 g/dl (32.0-36.5); PLATELET COUNT, AUTOMATED 523 10^3/uL (150-450); RED BLOOD COUNT 3.47 10^6/uL (4.00-5.40); WHITE BLOOD COUNT 9.7 10^3/uL (4.0-10.0)
[2019-06-15 07:21] LABS: ALBUMIN 1.7 GM/DL (3.2-5.2); ALT/SGPT 9 U/L (12-78); BILIRUBIN,TOTAL 0.5 MG/DL (0.2-1.0); BLOOD UREA NITROGEN 11 MG/DL (7-18); CALCIUM LEVEL 8.5 MG/DL (8.8-10.2); CARBON DIOXIDE LEVEL 26 MEQ/L (21-32); CHLORIDE LEVEL 95 MEQ/L (98-107); CREATININE FOR GFR 0.49 MG/DL (0.55-1.30); GLOMERULAR FILTRATION RATE > 60.0 (>32); GLUCOSE, FASTING 105 MG/DL (70-100); SODIUM LEVEL 128 MEQ/L (136-145); TOTAL PROTEIN 5.1 GM/DL (6.4-8.2)
[2019-06-15] MEDS: SODIUM CHLORIDE 1 GM TAB PO SCH ×2 (08:27→20:41)
[2019-06-15] MEDS: ASPIRIN 325 MG TAB PO SCH (08:27)
[2019-06-15] MEDS: ENOXAPARIN 40 MG/0.4 ML SYRINGE (J1650) SC SCH (08:27)
[2019-06-15] MEDS: ATENOLOL 50 MG TAB PO SCH ×2 (08:33→12:30)
--- NOTE | 2019-06-15 11:01 | IPNPDOC ---
Subjective Date Seen The patient was seen on 06/15/19. Subjective Chief Complaint/HPI Patient is comfortable offers no complaints in no distress General: Denies: ROS Unobtainable, Chills, Night Sweats, Fatigue, Malaise, Normal Appetite, Other Symptoms Constitutional: Denies: Chills, Fever, Malaise, Night Sweats, Weakness, Fatigue, Weight Loss, Lethargy, Other Eyes: Denies: Pain, Vision change, Conjunctivae inflammation, Eyelid inflammation, Redness, Other ENT: Denies: Head Aches, Ear Pain, Dysphagia, Sinus Congestion, Post Nasal Drip, Sore Throat, Epistaxis, Other Symptoms Skin: Denies: Rash, Lesions, Jaundice, Bruising, Itching, Dry, Breakdown, Nail Changes, Other Pulmonary: Denies: Dyspnea, Cough, Pleuritic Chest Pain, Other Symptoms Cardiovascular: Denies: Chest Pain, Palpitations, Orthopnea, Paroxysmal Noc. Dyspnea, Edema, Lt Headedness, Other Symptoms Gastrointestinal: Denies: Nausea, Vomiting, Abdominal Pain, Diarrhea, Constipation, Melena, Hematochezia, Other Symptoms Musculoskeletal: Denies: Neck Pain, Back Pain, Shoulder Pain, Arm Pain, Hand Pain, Leg Pain, Foot Pain, Joint Pain, Muscle Pain, Spasms, Other Symptoms Neurological: Denies: Weakness, Numbness, Incoordination, Change in speech, Confusion, Seizures, Other Symptoms Psych: Denies: Mood Normal, Anxiety, Depression, Memory Issues, Thoughts of Self Harm, Anger, Thoughts of Harming Other, Other Psych Objective Physical Examination General Exam: Positive: Alert, Cooperative, Other (, lethargic, not does not respond to vocal or tactile stimuli) Eye Exam: Positive: PERRLA ENT Exam: Positive: Atraumatic, Mucous membr. moist/pink Neck Exam: Positive: Supple Chest Exam: Positive: Clear to auscultation, Normal air movement Heart Exam: Positive: Rate Normal, Normal S1, Normal S2 Abdomen Exam: Positive: Normal bowel sounds Extremity Exam: Positive: Normal pulses Skin Exam: Positive: Nl turgor and temperature Neuro Exam: Positive: Other (, unable to do neuro exam secondary to patient mental status) Assessment /Plan Problems (1) Metabolic encephalopathy Status: Resolved Problem Text: Patient is awake, alert, oriented 3 Altered mental status is completely resolved DC seizure precautions DC telemetry Activity out of bed as tolerated Physical therapy evaluation DC Joey Saenz transferred to medical floor [place], probably needs a placement in sub` acute rehabilitation facility (2) Hyponatremia Status: Acute Problem Text: Progressively resolving Serum sodium is 128 Today RLL it relates are within normal limits Continue IV normal saline and monitor serum sodium level Bekah is also on sodium chloride tablets (3) Urinary tract infection Status: Acute Problem Text: Urine cultures show aerococci Which is sensitive to penicillins DC Zosyn Start Unasyn Switched to by mouth Augmentin was on discharge (4) Bladder carcinoma Status: Chronic Problem Text: Patient is aware about bladder carcinoma, she has seen Dr. Portillo and is a scheduled to follow with him for cystoscopy and biopsy Further workup can be done as an outpatient with Dr. Portillo when she follows up No further intervention inpatient Plan/VTE VTE Prophylaxis Ordered?: Yes VS, I&O, 24H, Fishbone Vital Signs/I&O Vital Signs Date Time Temp Pulse Resp B/P (MAP) Pulse Ox O2 Delivery O2 Flow Rate FiO2 06/15/19 06:00 97.4 61 18 120/80 (93) 95 06/12/19 14:30 Room Air l I&O- Last 24 Hours up to 6 AM 06/15/19 06:00 Intake Total 1605 ml Output Total 325 ml Balance 1280 ml Laboratory Data 24H LABS Laboratory Tests 2 06/15/19 06:24: Nucleated Red Blood Cells % (auto) 0.0, Anion Gap 7L, Glomerular Filtration Rate > 60.0, Blood Urea Nitrogen 11, Creatinine 0.49L, Sodium Level 128L, Potassium Level 4.0, Chloride Level 95L, Carbon Dioxide Level 26, Calcium Level 8.5L, Aspartate Amino Transf (AST/SGOT) 12, Alanine Aminotransferase (ALT/SGPT) 9L, Alkaline Phosphatase 62, Total Bilirubin 0.5, Total Protein 5.1L, Albumin 1.7L, Albumin/Globulin Ratio 0.50L CBC/BMP Laboratory Tests 06/15/19 06:24 Red Blood Count 3.47 L, Mean Corpuscular Volume 85.0, Mean Corpuscular Hemoglobin 28.2, Mean Corpuscular Hemoglobin Concent 33.2, Red Cell Distribution Width 14.0, Calcium Level 8.5 L, Aspartate Amino Transf (AST/SGOT) 12, Alanine Aminotransferase (ALT/SGPT) 9 L, Alkaline Phosphatase 62, Total Bilirubin 0.5, Total Protein 5.1 L, Albumin 1.7 L Microbiology Microbiology 06/12/19 Blood Culture - Final, Complete Staphylococcus Capitis 06/12/19 Blood Culture - Preliminary, Resulted No Growth after 72 hours. All specime... 06/12/19 Urine Culture - Final, Complete Aerococcus Urinae RAQUEL ROSEN MD Jun 15, 2019 11:00
--- NOTE | 2019-06-15 11:04 | IPNPDOC ---
Subjective Date Seen The patient was seen on 06/15/19. Subjective Chief Complaint/HPI Patient feeling much better off was no complaint was to go home. Our rehabilitation General: Denies: ROS Unobtainable, Chills, Night Sweats, Fatigue, Malaise, Normal Appetite, Other Symptoms Constitutional: Denies: Chills, Fever, Malaise, Night Sweats, Weakness, Fatigue, Weight Loss, Lethargy, Other Eyes: Denies: Pain, Vision change, Conjunctivae inflammation, Eyelid inflammat ion, Redness, Other ENT: Denies: Head Aches, Ear Pain, Dysphagia, Sinus Congestion, Post Nasal Drip, Sore Throat, Epistaxis, Other Symptoms Skin: Denies: Rash, Lesions, Jaundice, Bruising, Itching, Dry, Breakdown, Nail Changes, Other Pulmonary: Denies: Dyspnea, Cough, Pleuritic Chest Pain, Other Symptoms Cardiovascular: Denies: Chest Pain, Palpitations, Orthopnea, Paroxysmal Noc. Dyspnea, Edema, Lt Headedness, Other Symptoms Gastrointestinal: Denies: Nausea, Vomiting, Abdominal Pain, Diarrhea, Constipation, Melena, Hematochezia, Other Symptoms Genitourinary: Denies: Dysuria, Frequency, Incontinence, Hematuria, Retention, Other Symptoms Musculoskeletal: Denies: Neck Pain, Back Pain, Shoulder Pain, Arm Pain, Hand Pain, Leg Pain, Foot Pain, Joint Pain, Muscle Pain, Spasms, Other Symptoms Neurological: Denies: Weakness, Numbness, Incoordination, Change in speech, Confusion, Seizures, Other Symptoms Objective Physical Examination General Exam: Positive: Alert, Cooperative, Other (, lethargic, not does not respond to vocal or tactile stimuli) Eye Exam: Positive: PERRLA ENT Exam: Positive: Atraumatic, Mucous membr. moist/pink Neck Exam: Positive: Supple Chest Exam: Positive: Clear to auscultation, Normal air movement Heart Exam: Positive: Rate Normal, Normal S1, Normal S2 Abdomen Exam: Positive: Normal bowel sounds Extremity Exam: Positive: Normal pulses Skin Exam: Positive: Nl turgor and temperature Neuro Exam: Positive: Other (, unable to do neuro exam secondary to patient mental status) Assessment /Plan Problems (1) Metabolic encephalopathy Status: Resolved Problem Text: Patient is awake, alert, oriented 3 Altered mental status is completely resolved DC seizure precautions DC telemetry Activity out of bed as tolerated Physical therapy evaluation DC Joey Saenz transferred to medical floor [place], probably needs a placement in sub` acute rehabilitation facility (2) Hyponatremia Status: Acute Problem Text: Progressively resolving Serum sodium is 128 Today RLL it relates are within normal limits Continue IV normal saline and monitor serum sodium level Bekah is also on sodium chloride tablets (3) Urinary tract infection Status: Acute Problem Text: Urine cultures show aerococci Which is sensitive to penicillins DC Zosyn Start Unasyn Switched to by mouth Augmentin was on discharge (4) Bladder carcinoma Status: Chronic Problem Text: Patient is aware about bladder carcinoma, she has seen Dr. Portillo and is a scheduled to follow with him for cystoscopy and biopsy Further workup can be done as an outpatient with Dr. Portillo when she follows up No further intervention inpatient Plan/VTE VTE Prophylaxis Ordered?: Yes VS, I&O, 24H, Fishbone Vital Signs/I&O Vital Signs Date Time Temp Pulse Resp B/P (MAP) Pulse Ox O2 Delivery O2 Flow Rate FiO2 06/15/19 06:00 97.4 61 18 120/80 (93) 95 06/12/19 14:30 Room Air I&O- Last 24 Hours up to 6 AM 06/15/19 06:00 Intake Total 1605 ml Output Total 325 ml Balance 1280 ml Laboratory Data 24H LABS Laboratory Tests 2 06/15/19 06:24: Nucleated Red Blood Cells % (auto) 0.0, Anion Gap 7L, Glomerular Filtration Rate > 60.0, Blood Urea Nitrogen 11, Creatinine 0.49L, Sodium Level 128L, Potassium Level 4.0, Chloride Level 95L, Carbon Dioxide Level 26, Calcium Level 8.5L, Aspartate Amino Transf (AST/SGOT) 12, Alanine Aminotransferase (ALT/SGPT) 9L, Alkaline Phosphatase 62, Total Bilirubin 0.5, Total Protein 5.1L, Albumin 1.7L, Albumin/Globulin Ratio 0.50L CBC/BMP Laboratory Tests 06/15/19 06:24 Red Blood Count 3.47 L, Mean Corpuscular Volume 85.0, Mean Corpuscular Hemo globin 28.2, Mean Corpuscular Hemoglobin Concent 33.2, Red Cell Distribution Width 14.0, Calcium Level 8.5 L, Aspartate Amino Transf (AST/SGOT) 12, Alanine Aminotransferase (ALT/SGPT) 9 L, Alkaline Phosphatase 62, Total Bilirubin 0.5, Total Protein 5.1 L, Albumin 1.7 L Microbiology Microbiology 06/12/19 Blood Culture - Final, Complete Staphylococcus Capitis 06/12/19 Blood Culture - Preliminary, Resulted No Growth after 72 hours. All specime... 06/12/19 Urine Culture - Final, Complete Aerococcus Urinae RAQUEL ROSEN MD Jun 15, 2019 11:04
[2019-06-15] MEDS: NS 1,000 ML IV SCH (12:55)
[2019-06-15] MEDS: ONDANSETRON 4 MG TAB (S0181) PO PRN (20:42)
[2019-06-15 22:00] VITALS: BP 128/65
[2019-06-16] MEDS: AMPICILLIN SOD/SULBACTAM SOD 1.5 GM in D5W MINI-BAG PLUS 50 ML IV SCH (02:04)
[2019-06-16] MEDS: NS 1,000 ML IV SCH (05:02)
[2019-06-16 05:54] LABS: HEMATOCRIT 33.4 % (36.0-47.0); HEMOGLOBIN 11.1 g/dl (12.0-15.5); MEAN CORPUSCULAR HEMOGLOBIN 27.4 pg (27.0-33.0); MEAN CORPUSCULAR HGB CONC 33.2 g/dl (32.0-36.5); MEAN CORPUSCULAR VOLUME 82.5 fl (80.0-96.0); RED BLOOD COUNT 4.05 10^6/uL (4.00-5.40); WHITE BLOOD COUNT 12.1 10^3/uL (4.0-10.0)
[2019-06-16 05:59] LABS: PLATELET COUNT, AUTOMATED 658 10^3/uL (150-450)
[2019-06-16 06:00] VITALS: BP 144/78
[2019-06-16 06:19] LABS: ALBUMIN 1.9 GM/DL (3.2-5.2); ALT/SGPT 9 U/L (12-78); BILIRUBIN,TOTAL 0.5 MG/DL (0.2-1.0); BLOOD UREA NITROGEN 12 MG/DL (7-18); CALCIUM LEVEL 8.8 MG/DL (8.8-10.2); CARBON DIOXIDE LEVEL 27 MEQ/L (21-32); CHLORIDE LEVEL 93 MEQ/L (98-107); GLOMERULAR FILTRATION RATE > 60.0 (>32); GLUCOSE, FASTING 138 MG/DL (70-100); POTASSIUM SERUM 4.3 MEQ/L (3.5-5.1); SODIUM LEVEL 127 MEQ/L (136-145); TOTAL PROTEIN 5.9 GM/DL (6.4-8.2)
[2019-06-16] MEDS: ENOXAPARIN 40 MG/0.4 ML SYRINGE (J1650) SC SCH (08:47)
[2019-06-16] MEDS: CLINDAMYCIN 600 MG in APPROPRIATE DILUENT 1 EA IV SCH ×3 (08:48→21:13)
[2019-06-16] MEDS: SODIUM CHLORIDE 1 GM TAB PO SCH ×2 (08:48→21:12)
[2019-06-16] MEDS: ASPIRIN 325 MG TAB PO SCH (08:48)
[2019-06-16] MEDS: ATENOLOL 50 MG TAB PO SCH (08:48)
--- NOTE | 2019-06-16 12:33 | IPNPDOC ---
Subjective Date Seen The patient was seen on 06/16/19. Subjective Chief Complaint/HPI Patient is comfortable offers no new complaints at the present time General: Denies: ROS Unobtainable, Chills, Night Sweats, Fatigue, Malaise, Normal Appetite, Other Symptoms Constitutional: Denies: Chills, Fever, Malaise, Night Sweats, Weakness, Fatigue, Weight Loss, Lethargy, Other Eyes: Denies: Pain, Vision change, Conjunctivae inflammation, Eyelid inflammation, Redness, Other ENT: Denies: Head Aches, Ear Pain, Dysphagia, Sinus Congestion, Post Nasal Drip, Sore Throat, Epistaxis, Other Symptoms Skin: Denies: Rash, Lesions, Jaundice, Bruising, Itching, Dry, Breakdown, Nail Changes, Other Pulmonary: Denies: Dyspnea, Cough, Pleuritic Chest Pain, Other Symptoms Cardiovascular: Denies: Chest Pain, Palpitations, Orthopnea, Paroxysmal Noc. Dyspnea, Edema, Lt Headedness, Other Symptoms Gastrointestinal: Denies: Nausea, Vomiting, Abdominal Pain, Diarrhea, Constip ation, Melena, Hematochezia, Other Symptoms Musculoskeletal: Denies: Neck Pain, Back Pain, Shoulder Pain, Arm Pain, Hand Pain, Leg Pain, Foot Pain, Joint Pain, Muscle Pain, Spasms, Other Symptoms Neurological: Denies: Weakness, Numbness, Incoordination, Change in speech, Confusion, Seizures, Other Symptoms Objective Physical Examination General Exam: Positive: Alert, Cooperative, Other (, lethargic, not does not respond to vocal or tactile stimuli) Eye Exam: Positive: PERRLA ENT Exam: Positive: Atraumatic, Mucous membr. moist/pink Neck Exam: Positive: Supple Chest Exam: Positive: Clear to auscultation, Normal air movement Heart Exam: Positive: Rate Normal, Normal S1, Normal S2 Abdomen Exam: Positive: Normal bowel sounds Extremity Exam: Positive: Normal pulses Skin Exam: Positive: Nl turgor and temperature Neuro Exam: Positive: Other (, unable to do neuro exam secondary to patient mental status) Assessment /Plan Problems (1) Metabolic encephalopathy Status: Resolved Problem Text: Patient is awake, alert, oriented 3 Altered mental status is completely resolved DC seizure precautions DC telemetry Activity out of bed as tolerated Physical therapy evaluation DC Cook Transfer to subacute rehabilitation facility was the bed is available (2) Hyponatremia Status: Acute Problem Text: Progressively resolving Serum sodium is 127 Today. Patient is asymptomatic She is also on sodium chloride tablets DC IV fluids Repeat sodium level in a.m. (3) Urinary tract infection Status: Acute Problem Text: Urine cultures show aerococci DC Unasyn as patient has been started on clindamycin secondary to positive blood cultures with Streptococcus will also cover enterococcus. I as well Once patient is ready to be discharged to subacute area facility. Will change antibiotics to by mouth (4) Bladder carcinoma Status: Chronic Problem Text: Patient is aware about bladder carcinoma, she has seen Dr. Portillo and is a scheduled to follow with him for cystoscopy and biopsy Further workup can be done as an outpatient with Dr. Portillo when she follows up No further intervention inpatient Plan/VTE VTE Prophylaxis Ordered?: Yes VS, I&O, 24H, Fishbone Vital Signs/I&O Vital Signs Date Time Temp Pulse Resp B/P (MAP) Pulse Ox O2 Delivery O2 Flow Rate FiO2 06/16/19 08:48 75 146/87 06/16/19 06:00 97.8 18 92 06/12/19 14:30 Room Air I&O- Last 24 Hours up to 6 AM 06/16/19 06:00 Intake Total 1970 ml Output Total 0 ml Balance 1970 ml Laboratory Data 24H LABS Laboratory Tests 2 06/16/19 05:34: Nucleated Red Blood Cells % (auto) 0.0, Anion Gap 7L, Glomerular Filtration Rate > 60.0, Blood Urea Nitrogen 12, Creatinine 0.50L, Sodium Level 127L, Potassium Level 4.3, Chloride Level 93L, Carbon Dioxide Level 27, Calcium Level 8.8, Aspartate Amino Transf (AST/SGOT) 8, Alanine Aminotransferase (ALT/SGPT) 9L, Alkaline Phosphatase 70, Total Bilirubin 0.5, Total Protein 5.9L, Albumin 1.9L, Albumin/Globulin Ratio 0.48L CBC/BMP Laboratory Tests 06/16/19 05:34 Red Blood Count 4.05, Mean Corpuscular Volume 82.5, Mean Corpuscular Hemoglobin 27.4, Mean Corpuscular Hemoglobin Concent 33.2, Red Cell Distribution Width 13.8, Calcium Level 8.8, Aspartate Amino Transf (AST/SGOT) 8, Alanine Aminotransferase (ALT/SGPT) 9 L, Alkaline Phosphatase 70, Total Bilirubin 0.5, Total Protein 5.9 L, Albumin 1.9 L Microbiology Microbiology 06/12/19 Blood Culture - Final, Complete Staphylococcus Capitis 06/12/19 Blood Culture - Preliminary, Resulted No Growth after 72 hours. All specime... 06/12/19 Urine Culture - Final, Complete Aerococcus Urinae RAQUEL ROSEN MD Jun 16, 2019 12:33
[2019-06-16 14:00] VITALS: BP 142/73
[2019-06-16] MEDS: ONDANSETRON 4 MG TAB (S0181) PO PRN (14:38)
[2019-06-16 22:00] VITALS: BP 139/74
[2019-06-17] MEDS: CLINDAMYCIN 600 MG in APPROPRIATE DILUENT 1 EA IV SCH ×4 (02:52→20:19)
[2019-06-17 06:00] VITALS: BP 133/89
[2019-06-17 06:06] LABS: BASO % 0.2 % (0.0-1.0); EOS % 0.2 % (0.0-3.0); HEMATOCRIT 31.9 % (36.0-47.0); HEMOGLOBIN 10.4 g/dl (12.0-15.5); LYMPH # 0.6 10^3/uL (1.5-4.5); LYMPH % 4.5 % (24.0-44.0); MEAN CORPUSCULAR HEMOGLOBIN 26.6 pg (27.0-33.0); MEAN CORPUSCULAR HGB CONC 32.6 g/dl (32.0-36.5); MEAN CORPUSCULAR VOLUME 81.6 fl (80.0-96.0); MONO # 1.5 10^3/uL (0.0-0.8); MONO % 11.7 % (0.0-5.0); NEUTROPHILS # 10.2 10^3/uL (1.8-7.7); NEUTROPHILS % 81.7 % (36.0-66.0); PLATELET COUNT, AUTOMATED 765 10^3/uL (150-450); RED BLOOD COUNT 3.91 10^6/uL (4.00-5.40); WHITE BLOOD COUNT 12.5 10^3/uL (4.0-10.0)
[2019-06-17 06:35] LABS: ALBUMIN 1.9 GM/DL (3.2-5.2); ALT/SGPT 13 U/L (12-78); BILIRUBIN,TOTAL 0.4 MG/DL (0.2-1.0); BLOOD UREA NITROGEN 19 MG/DL (7-18); CALCIUM LEVEL 9.5 MG/DL (8.8-10.2); CARBON DIOXIDE LEVEL 27 MEQ/L (21-32); CHLORIDE LEVEL 93 MEQ/L (98-107); CREATININE FOR GFR 0.54 MG/DL (0.55-1.30); GLOMERULAR FILTRATION RATE > 60.0 (>32); GLUCOSE, FASTING 119 MG/DL (70-100); POTASSIUM SERUM 4.6 MEQ/L (3.5-5.1); SODIUM LEVEL 126 MEQ/L (136-145); TOTAL PROTEIN 5.7 GM/DL (6.4-8.2)
[2019-06-17] MEDS: ENOXAPARIN 40 MG/0.4 ML SYRINGE (J1650) SC SCH (08:45)
[2019-06-17] MEDS: ASPIRIN 325 MG TAB PO SCH (08:45)
[2019-06-17] MEDS: SODIUM CHLORIDE 1 GM TAB PO SCH ×2 (08:45→20:19)
[2019-06-17] MEDS: ATENOLOL 50 MG TAB PO SCH (08:48)
--- NOTE | 2019-06-17 10:46 | IPNPDOC ---
Subjective Date Seen The patient was seen on 06/17/19. Subjective Chief Complaint/HPI Patient offers no new complaints comfortable General: Denies: ROS Unobtainable, Chills, Night Sweats, Fatigue, Malaise, Nor mal Appetite, Other Symptoms Constitutional: Denies: Chills, Fever, Malaise, Night Sweats, Weakness, Fatigue, Weight Loss, Lethargy, Other Eyes: Denies: Pain, Vision change, Conjunctivae inflammation, Eyelid inflammation, Redness, Other ENT: Denies: Head Aches, Ear Pain, Dysphagia, Sinus Congestion, Post Nasal Drip, Sore Throat, Epistaxis, Other Symptoms Skin: Denies: Rash, Lesions, Jaundice, Bruising, Itching, Dry, Breakdown, Nail Changes, Other Pulmonary: Denies: Dyspnea, Cough, Pleuritic Chest Pain, Other Symptoms Cardiovascular: Denies: Chest Pain, Palpitations, Orthopnea, Paroxysmal Noc. Dyspnea, Edema, Lt Headedness, Other Symptoms Gastrointestinal: Denies: Nausea, Vomiting, Abdominal Pain, Diarrhea, Constipation, Melena, Hematochezia, Other Symptoms Neurological: Denies: Weakness, Numbness, Incoordination, Change in speech, Confusion, Seizures, Other Symptoms Objective Physical Examination General Exam: Positive: Alert, Cooperative, Other (, lethargic, not does not respond to vocal or tactile stimuli) Eye Exam: Positive: PERRLA ENT Exam: Positive: Atraumatic, Mucous membr. moist/pink Neck Exam: Positive: Supple Chest Exam: Positive: Clear to auscultation, Normal air movement Heart Exam: Positive: Rate Normal, Normal S1, Normal S2 Abdomen Exam: Positive: Normal bowel sounds Extremity Exam: Positive: Normal pulses Skin Exam: Positive: Nl turgor and temperature Neuro Exam: Positive: Other (, unable to do neuro exam secondary to patient mental status) Assessment /Plan Problems (1) Metabolic encephalopathy Status: Resolved Problem Text: Patient is awake, alert, oriented 3 Altered mental status is completely resolved DC seizure precautions DC telemetry Activity out of bed as tolerated Physical therapy in progress Cook catheter was DC'd Transfer to subacute rehabilitation facility was the bed is available (2) Hyponatremia Status: Acute Problem Text: Progressively resolving Serum sodium is 126Today. Patient is asymptomatic , probably chronic in nature She is also on sodium chloride tablets DC IV fluids Repeat sodium level in a.m. (3) Urinary tract infection Status: Acute Problem Text: Urine cultures show aerococci DC Unasyn as patient has been started on clindamycin secondary to positive blood cultures with Streptococcus will also cover enterococcus. I as well Once patient is ready to be discharged to subacute area facility. Will change antibiotics to by mouth (4) Bladder carcinoma Status: Chronic Problem Text: Patient is aware about bladder carcinoma, she has seen Dr. Portillo and is a scheduled to follow with him for cystoscopy and biopsy Further workup can be done as an outpatient with Dr. Portillo when she follows up No further intervention inpatient Plan/VTE VTE Prophylaxis Ordered?: Yes VS, I&O, 24H, Fishbone Vital Signs/I&O Vital Signs Date Time Temp Pulse Resp B/P (MAP) Pulse Ox O2 Delivery O2 Flow Rate FiO2 06/17/19 08:48 81 133/89 06/17/19 06:00 97.2 18 94 06/12/19 14:30 Room Air I&O- Last 24 Hours up to 6 AM 06/17/19 06:00 Intake Total 1610 ml Output Total 0 ml Balance 1610 ml Laboratory Data 24H LABS Laboratory Tests 2 06/17/19 05:50: Immature Granulocyte % (Auto) 1.7, White Blood Count 12.5H, Red Blood Count 3.91L, Hemoglobin 10.4L, Hematocrit 31.9L, Mean Corpuscular Volume 81.6, Mean C orpuscular Hemoglobin 26.6L, Mean Corpuscular Hemoglobin Concent 32.6, Red Cell Distribution Width 14.1, Platelet Count 765H, Neutrophils (%) (Auto) 81.7H, Lymphocytes (%) (Auto) 4.5L, Monocytes (%) (Auto) 11.7H, Eosinophils (%) (Auto) 0.2, Basophils (%) (Auto) 0.2, Neutrophils # (Auto) 10.2H, Lymphocytes # (Auto) 0.6L, Monocytes # (Auto) 1.5H, Eosinophils # (Auto) 0.0, Basophils # (Auto) 0.0, Nucleated Red Blood Cells % (auto) 0.0, Anion Gap 6L, Glomerular Filtration Rate > 60.0, Blood Urea Nitrogen 19#H, Creatinine 0.54L, Sodium Level 126L, Potassium Level 4.6, Chloride Level 93L, Carbon Dioxide Level 27, Calcium Level 9.5, Aspartate Amino Transf (AST/SGOT) 10, Alanine Aminotransferase (ALT/SGPT) 13, Alkaline Phosphatase 64, Total Bilirubin 0.4, Total Protein 5.7L, Albumin 1.9L, Albumin/Globulin Ratio 0.50L CBC/BMP Laboratory Tests 06/17/19 05:50 Red Blood Count 3.91 L, Mean Corpuscular Volume 81.6, Mean Corpuscular Hemoglobin 26.6 L, Mean Corpuscular Hemoglobin Concent 32.6, Red Cell Distribution Width 14.1, Neutrophils (%) (Auto) 81.7 H, Lymphocytes (%) (Auto) 4.5 L, Monocytes (%) (Auto) 11.7 H, Eosinophils (%) (Auto) 0.2, Basophils (%) (Auto) 0.2, Neutrophils # (Auto) 10.2 H, Lymphocytes # (Auto) 0.6 L, Monocytes # (Auto) 1.5 H, Eosinophils # (Auto) 0.0, Basophils # (Auto) 0.0, Calcium Level 9.5, Aspartate Amino Transf (AST/SGOT) 10, Alanine Aminotransferase (ALT/SGPT) 13, Alkaline Phosphatase 64, Total Bilirubin 0.4, Total Protein 5.7 L, Albumin 1.9 L Microbiology Microbiology 06/12/19 Blood Culture - Final, Complete Staphylococcus Capitis 06/12/19 Blood Culture - Final, Complete NO GROWTH AFTER 5 DAYS 06/12/19 Urine Culture - Final, Complete Aerococcus Urinae RAQUEL ROSEN MD Jun 17, 2019 10:45
[2019-06-17 14:00] VITALS: BP 132/63
[2019-06-17 22:00] VITALS: BP 135/68
[2019-06-18] MEDS: CLINDAMYCIN 600 MG in APPROPRIATE DILUENT 1 EA IV SCH ×4 (02:47→20:36)
[2019-06-18 06:00] VITALS: BP 150/84
[2019-06-18 09:11] VITALS: BP 163/97
[2019-06-18] MEDS: ENOXAPARIN 40 MG/0.4 ML SYRINGE (J1650) SC SCH (09:24)
[2019-06-18] MEDS: ATENOLOL 50 MG TAB PO SCH (09:24)
[2019-06-18] MEDS: ASPIRIN 325 MG TAB PO SCH (09:24)
[2019-06-18] MEDS: SODIUM CHLORIDE 1 GM TAB PO SCH ×2 (09:24→20:36)
--- NOTE | 2019-06-18 11:12 | IPNPDOC ---
Subjective Date Seen The patient was seen on 06/18/19. Subjective Chief Complaint/HPI Patient is comfortable and down in bed. Her legs on the pillows in no apparent distress General: Denies: ROS Unobtainable, Chills, Night Sweats, Fatigue, Malaise, Normal Appetite, Other Symptoms Constitutional: Denies: Chills, Fever, Malaise, Night Sweats, Weakness, Fatigue, Weight Loss, Lethargy, Other Eyes: Denies: Pain, Vision change, Conjunctivae inflammation, Eyelid inflammation, Redness, Other ENT: Denies: Head Aches, Ear Pain, Dysphagia, Sinus Congestion, Post Nasal Drip, Sore Throat, Epistaxis, Other Symptoms Skin: Denies: Rash, Lesions, Jaundice, Bruising, Itching, Dry, Breakdown, Nail Changes, Other Pulmonary: Denies: Dyspnea, Cough, Pleuritic Chest Pain, Other Symptoms Cardiovascular: Denies: Chest Pain, Palpitations, Orthopnea, Paroxysmal Noc. Dyspnea, Edema, Lt Headedness, Other Symptoms Gastrointestinal: Denies: Nausea, Vomiting, Abdominal Pain, Diarrhea, Constipation, Melena, Hematochezia, Other Symptoms Musculoskeletal: Denies: Neck Pain, Back Pain, Shoulder Pain, Arm Pain, Hand Pain, Leg Pain, Foot Pain, Joint Pain, Muscle Pain, Spasms, Other Symptoms Neurological: Denies: Weakness, Numbness, Incoordination, Change in speech, Confusion, Seizures, Other Symptoms Objective Physical Examination General Exam: Positive: Alert, Cooperative, Other (, lethargic, not does not respond to vocal or tactile stimuli) Eye Exam: Positive: PERRLA ENT Exam: Positive: Atraumatic, Mucous membr. moist/pink Neck Exam: Positive: Supple Chest Exam: Positive: Clear to auscultation, Normal air movement Heart Exam: Positive: Rate Normal, Normal S1, Normal S2 Abdomen Exam: Positive: Normal bowel sounds Extremity Exam: Positive: Edema, Normal pulses Skin Exam: Positive: Nl turgor and temperature Neuro Exam: Positive: Other (, unable to do neuro exam secondary to patient mental status) Assessment /Plan Problems (1) Metabolic encephalopathy Status: Resolved Problem Text: Patient is awake, alert, oriented 3 Altered mental status is completely resolved DC seizure precautions DC telemetry Activity out of bed as tolerated Physical therapy in progress Cook catheter was DC'd Transfer to subacute rehabilitation facility on Friday (2) Hyponatremia Status: Acute Problem Text: Progressively resolving Serum sodium is 126Today. Patient is asymptomatic , probably chronic in nature She is also on sodium chloride tablets DC IV fluids Will implement fluid restriction to 1500 mL in 24 hours Repeat sodium level in a.m. (3) Urinary tract infection Status: Acute Problem Text: Urine cultures show aerococci DC Unasyn as patient has been started on clindamycin secondary to positive blood cultures with Streptococcus will also cover enterococcus. I as well Once patient is ready to be discharged to subacute area facility. Will change antibiotics to by mouth (4) Bladder carcinoma Status: Chronic Problem Text: Patient is aware about bladder carcinoma, she has seen Dr. Portillo and is a scheduled to follow with him for cystoscopy and biopsy Further workup can be done as an outpatient with Dr. Portillo when she follows up No further intervention inpatient Plan/VTE VTE Prophylaxis Ordered?: Yes VS, I&O, 24H, Fishbone Vital Signs/I&O Vital Signs Date Time Temp Pulse Resp B/P (MAP) Pulse Ox O2 Delivery O2 Flow Rate FiO2 06/18/19 09:24 74 163/97 06/18/19 06:00 98.3 18 93 06/12/19 14:30 Room Air I&O- Last 24 Hours up to 6 AM 06/18/19 06:00 Intake Total 1410 ml Output Total 0 ml Balance 1410 ml Laboratory Data Microbiology Microbiology 06/12/19 Blood Culture - Final, Complete Staphylococcus Capitis 06/12/19 Blood Culture - Final, Complete NO GROWTH AFTER 5 DAYS 06/12/19 Urine Culture - Final, Complete Aerococcus Urinae RAQUEL ROSEN MD Jun 18, 2019 11:12
[2019-06-18 14:00] VITALS: BP 118/63
[2019-06-18] MEDS: LACTOBACILLUS ACIDOPHILUS CAP (BACID) PO SCH (17:02)
[2019-06-18 22:00] VITALS: BP 142/66
[2019-06-19] MEDS: CLINDAMYCIN 600 MG in APPROPRIATE DILUENT 1 EA IV SCH ×4 (02:42→21:31)
[2019-06-19 06:00] VITALS: BP 139/63
[2019-06-19 06:06] LABS: BASO % 0.2 % (0.0-1.0); EOS % 0.2 % (0.0-3.0); HEMATOCRIT 30.2 % (36.0-47.0); HEMOGLOBIN 9.9 g/dl (12.0-15.5); LYMPH # 0.6 10^3/uL (1.5-4.5); LYMPH % 4.4 % (24.0-44.0); MEAN CORPUSCULAR HEMOGLOBIN 27.5 pg (27.0-33.0); MEAN CORPUSCULAR HGB CONC 32.8 g/dl (32.0-36.5); MEAN CORPUSCULAR VOLUME 83.9 fl (80.0-96.0); MONO # 1.4 10^3/uL (0.0-0.8); MONO % 11.2 % (0.0-5.0); NEUTROPHILS # 10.5 10^3/uL (1.8-7.7); NEUTROPHILS % 81.7 % (36.0-66.0); PLATELET COUNT, AUTOMATED 786 10^3/uL (150-450); WHITE BLOOD COUNT 12.9 10^3/uL (4.0-10.0)
[2019-06-19 06:31] LABS: BLOOD UREA NITROGEN 21 MG/DL (7-18); CARBON DIOXIDE LEVEL 26 MEQ/L (21-32); CHLORIDE LEVEL 96 MEQ/L (98-107); CREATININE FOR GFR 0.46 MG/DL (0.55-1.30); GLOMERULAR FILTRATION RATE > 60.0 (>32); GLUCOSE, FASTING 105 MG/DL (70-100); POTASSIUM SERUM 4.1 MEQ/L (3.5-5.1); SODIUM LEVEL 130 MEQ/L (136-145)
[2019-06-19] MEDS: ENOXAPARIN 40 MG/0.4 ML SYRINGE (J1650) SC SCH (08:47)
[2019-06-19] MEDS: ASPIRIN 325 MG TAB PO SCH (08:48)
[2019-06-19] MEDS: ATENOLOL 50 MG TAB PO SCH (08:48)
[2019-06-19] MEDS: SODIUM CHLORIDE 1 GM TAB PO SCH ×2 (08:48→21:31)
[2019-06-19] MEDS: LACTOBACILLUS ACIDOPHILUS CAP (BACID) PO SCH ×3 (08:48→17:28)
[2019-06-19 09:17] LABS: CLOSTRIDIUM DIFFICILE PCR NEGATIVE (NEGATIVE)
--- NOTE | 2019-06-19 11:13 | IPNPDOC ---
Subjective Date Seen The patient was seen on 06/19/19. Subjective Chief Complaint/HPI Patient is comfortable sitting in bed, offers no new complaints at the present time General: Denies: ROS Unobtainable, Chills, Night Sweats, Fatigue, Malaise, Normal Appetite, Other Symptoms Constitutional: Denies: Chills, Fever, Malaise, Night Sweats, Weakness, Fatigue, Weight Loss, Lethargy, Other Eyes: Denies: Pain, Vision change, Conjunctivae inflammation, Eyelid inflammat ion, Redness, Other ENT: Denies: Head Aches, Ear Pain, Dysphagia, Sinus Congestion, Post Nasal Drip, Sore Throat, Epistaxis, Other Symptoms Skin: Denies: Rash, Lesions, Jaundice, Bruising, Itching, Dry, Breakdown, Nail Changes, Other Pulmonary: Denies: Dyspnea, Cough, Pleuritic Chest Pain, Other Symptoms Cardiovascular: Denies: Chest Pain, Palpitations, Orthopnea, Paroxysmal Noc. Dyspnea, Edema, Lt Headedness, Other Symptoms Gastrointestinal: Denies: Nausea, Vomiting, Abdominal Pain, Diarrhea, Constipation, Melena, Hematochezia, Other Symptoms Musculoskeletal: Denies: Neck Pain, Back Pain, Shoulder Pain, Arm Pain, Hand Pain, Leg Pain, Foot Pain, Joint Pain, Muscle Pain, Spasms, Other Symptoms Neurological: Denies: Weakness, Numbness, Incoordination, Change in speech, Confusion, Seizures, Other Symptoms Objective Physical Examination General Exam: Positive: Alert, Cooperative, Other (, lethargic, not does not respond to vocal or tactile stimuli) Eye Exam: Positive: PERRLA ENT Exam: Positive: Atraumatic, Mucous membr. moist/pink Neck Exam: Positive: Supple Chest Exam: Positive: Clear to auscultation, Normal air movement Heart Exam: Positive: Rate Normal, Normal S1, Normal S2 Abdomen Exam: Positive: Normal bowel sounds Extremity Exam: Positive: Edema, Normal pulses Skin Exam: Positive: Nl turgor and temperature Neuro Exam: Positive: Other (, unable to do neuro exam secondary to patient mental status) Assessment /Plan Problems (1) Metabolic encephalopathy Status: Resolved Problem Text: Patient is awake, alert, oriented 3 Altered mental status is completely resolved DC seizure precautions DC telemetry Activity out of bed as tolerated Physical therapy in progress Cook catheter was DC'd Transfer to subacute rehabilitation facility on [place] (2) Hyponatremia Status: Acute Problem Text: Progressively resolving Serum sodium is 130 Today. Patient is asymptomatic , probably chronic in nature She is also on sodium chloride tablets Will implement fluid restriction to 1500 mL in 24 hours Repeat sodium level in a.m. (3) Urinary tract infection Status: Acute Problem Text: Urine cultures show aerococci DC Unasyn as patient has been started on clindamycin secondary to positive blood cultures with Streph capitis will also cover aerococcus. l Once patient is ready to be discharged to subacute area facility. Will change antibiotics to by mouth (4) Bladder carcinoma Status: Chronic Problem Text: Patient is aware about bladder carcinoma, she has seen Dr. Portillo and is a scheduled to follow with him for cystoscopy and biopsy Further workup can be done as an outpatient with Dr. Portillo when she follows up No further intervention inpatient Plan/VTE VTE Prophylaxis Ordered?: Yes VS, I&O, 24H, Fishbone Vital Signs/I&O Vital Signs Date Time Temp Pulse Resp B/P (MAP) Pulse Ox O2 Delivery O2 Flow Rate FiO2 06/19/19 08:48 72 139/63 06/19/19 06:00 97.8 18 92 I&O- Last 24 Hours up to 6 AM 06/19/19 06:00 Intake Total 700 ml Balance 700 ml Laboratory Data 24H LABS Laboratory Tests 2 06/19/19 05:26: Immature Granulocyte % (Auto) 2.3, White Blood Count 12.9H, Red Blood Count 3.60L, Hemoglobin 9.9L, Hematocrit 30.2L, Mean Corpuscular Volume 83.9, Mean Corpuscular Hemoglobin 27.5, Mean Corpuscular Hemoglobin Concent 32.8, Red Cell Distribution Width 14.2, Platelet Count 786H, Neutrophils (%) (Auto) 81.7H, Lymphocytes (%) (Auto) 4.4L, Monocytes (%) (Auto) 11.2H, Eosinophils (%) (Auto) 0.2, Basophils (%) (Auto) 0.2, Neutrophils # (Auto) 10.5H, Lymphocytes # (Auto) 0.6L, Monocytes # (Auto) 1.4H, Eosinophils # (Auto) 0.0, Basophils # (Auto) 0.0, Nucleated Red Blood Cells % (auto) 0.0, Anion Gap 8, Glomerular Filtration Rate > 60.0, Blood Urea Nitrogen 21H, Creatinine 0.46L, Sodium Level 130L, Potassium Level 4.1, Chloride Level 96L, Carbon Dioxide Level 26, Calcium Level 9.0 06/19/19 07:47: Clostridium difficile [id number] PRESUMPTIVE NEGATIVE, Clostridium difficile Toxin (PCR) NEGATIVE CBC/BMP Laboratory Tests 06/19/19 05:26 Red Blood Count 3.60 L, Mean Corpuscular Volume 83.9, Mean Corpuscular Hemoglobin 27.5, Mean Corpuscular Hemoglobin Concent 32.8, Red Cell Distribution Width 14.2, Neutrophils (%) (Auto) 81.7 H, Lymphocytes (%) (Auto) 4.4 L, Monocytes (%) (Auto) 11.2 H, Eosinophils (%) (Auto) 0.2, Basophils (%) (Auto) 0.2, Neutrophils # (Auto) 10.5 H, Lymphocytes # (Auto) 0.6 L, Monocytes # (Auto) 1.4 H, Eosinophils # (Auto) 0.0, Basophils # (Auto) 0.0, Calcium Level 9.0 Microbiology Microbiology 06/12/19 Blood Culture - Final, Complete Staphylococcus Capitis 06/12/19 Blood Culture - Final, Complete NO GROWTH AFTER 5 DAYS 06/12/19 Urine Culture - Final, Complete Aerococcus Urinae RAQUEL ROSEN MD Jun 19, 2019 11:13
[2019-06-19 14:00] VITALS: BP 140/60
[2019-06-19 22:00] VITALS: BP 141/66
[2019-06-20] MEDS: CLINDAMYCIN 600 MG in APPROPRIATE DILUENT 1 EA IV SCH ×2 (02:26→08:55)
[2019-06-20 06:00] VITALS: BP 159/69
[2019-06-20 06:14] LABS: BASO % 0.1 % (0.0-1.0); HEMATOCRIT 31.8 % (36.0-47.0); HEMOGLOBIN 10.2 g/dl (12.0-15.5); LYMPH # 0.4 10^3/uL (1.5-4.5); LYMPH % 2.7 % (24.0-44.0); MEAN CORPUSCULAR HEMOGLOBIN 26.5 pg (27.0-33.0); MEAN CORPUSCULAR HGB CONC 32.1 g/dl (32.0-36.5); MEAN CORPUSCULAR VOLUME 82.6 fl (80.0-96.0); MONO % 7.8 % (0.0-5.0); NEUTROPHILS # 11.6 10^3/uL (1.8-7.7); NEUTROPHILS % 87.6 % (36.0-66.0); PLATELET COUNT, AUTOMATED 857 10^3/uL (150-450); RED BLOOD COUNT 3.85 10^6/uL (4.00-5.40); WHITE BLOOD COUNT 13.3 10^3/uL (4.0-10.0)
[2019-06-20 06:29] LABS: ALBUMIN 1.8 GM/DL (3.2-5.2); ALT/SGPT 18 U/L (12-78); BILIRUBIN,TOTAL 0.5 MG/DL (0.2-1.0); BLOOD UREA NITROGEN 23 MG/DL (7-18); CALCIUM LEVEL 9.4 MG/DL (8.8-10.2); CARBON DIOXIDE LEVEL 26 MEQ/L (21-32); CHLORIDE LEVEL 99 MEQ/L (98-107); CREATININE FOR GFR 0.52 MG/DL (0.55-1.30); GLOMERULAR FILTRATION RATE > 60.0 (>32); GLUCOSE, FASTING 128 MG/DL (70-100); SODIUM LEVEL 131 MEQ/L (136-145); TOTAL PROTEIN 5.4 GM/DL (6.4-8.2)
[2019-06-20] MEDS: LACTOBACILLUS ACIDOPHILUS CAP (BACID) PO SCH ×3 (08:55→17:15)
[2019-06-20] MEDS: SODIUM CHLORIDE 1 GM TAB PO SCH ×2 (08:55→21:15)
[2019-06-20] MEDS: ASPIRIN 325 MG TAB PO SCH (08:55)
[2019-06-20] MEDS: ATENOLOL 50 MG TAB PO SCH (08:55)
[2019-06-20] MEDS: ENOXAPARIN 40 MG/0.4 ML SYRINGE (J1650) SC SCH (08:55)
[2019-06-20] MEDS ORDERED: BACTRIM 160MG/800MG DS TAB PO SCH (09:00)
--- NOTE | 2019-06-20 10:41 | IPNPDOC ---
Subjective Date Seen The patient was seen on 06/20/19. Subjective Chief Complaint/HPI Patient comfortable in no distress, afebrile. Offers no new complaints General: Denies: ROS Unobtainable, Chills, Night Sweats, Fatigue, Malaise, Normal Appetite, Other Symptoms Constitutional: Denies: Chills, Fever, Malaise, Night Sweats, Weakness, Fatigue, Weight Loss, Lethargy, Other Eyes: Denies: Pain, Vision change, Conjunctivae inflammation, Eyelid inflammation, Redness, Other ENT: Denies: Head Aches, Ear Pain, Dysphagia, Sinus Congestion, Post Nasal Drip, Sore Throat, Epistaxis, Other Symptoms Skin: Denies: Rash, Lesions, Jaundice, Bruising, Itching, Dry, Breakdown, Nail Changes, Other Pulmonary: Denies: Dyspnea, Cough, Pleuritic Chest Pain, Other Symptoms Cardiovascular: Denies: Chest Pain, Palpitations, Orthopnea, Paroxysmal Noc. Dyspnea, Edema, Lt Headedness, Other Symptoms Gastrointestinal: Denies: Nausea, Vomiting, Abdominal Pain, Diarrhea, Cons tipation, Melena, Hematochezia, Other Symptoms Musculoskeletal: Denies: Neck Pain, Back Pain, Shoulder Pain, Arm Pain, Hand Pain, Leg Pain, Foot Pain, Joint Pain, Muscle Pain, Spasms, Other Symptoms Neurological: Denies: Weakness, Numbness, Incoordination, Change in speech, Confusion, Seizures, Other Symptoms Objective Physical Examination General Exam: Positive: Alert, Cooperative, Other (, lethargic, not does not respond to vocal or tactile stimuli) Eye Exam: Positive: PERRLA ENT Exam: Positive: Atraumatic, Mucous membr. moist/pink Neck Exam: Positive: Supple Chest Exam: Positive: Clear to auscultation, Normal air movement Heart Exam: Positive: Rate Normal, Normal S1, Normal S2 Abdomen Exam: Positive: Normal bowel sounds Extremity Exam: Positive: Edema, Normal pulses Skin Exam: Positive: Nl turgor and temperature Neuro Exam: Positive: Other (, unable to do neuro exam secondary to patient mental status) Assessment /Plan Problems (1) Metabolic encephalopathy Status: Resolved Problem Text: Patient is awake, alert, oriented 3 Altered mental status is completely resolved DC seizure precautions DC telemetry Activity out of bed as tolerated Physical therapy in progress Cook catheter was DC'd Patient will be transferred to subacute area facility in a.m. (2) Hyponatremia Status: Acute Problem Text: Progressively resolving Serum sodium is 130 Today. Patient is asymptomatic , probably chronic in nature She is also on sodium chloride tablets Will implement fluid restriction to 1500 mL in 24 hours Repeat sodium level in a.m. (3) Urinary tract infection Status: Acute Problem Text: Urine culture positive for aerocci Will change antibiotics to by mouth Macrobid 1 tablet by mouth twice a day CBC in a.m. (4) Bladder carcinoma Status: Chronic Problem Text: Patient is aware about bladder carcinoma, she has seen Dr. Portillo and is a scheduled to follow with him for cystoscopy and biopsy Further workup can be done as an outpatient with Dr. Portillo when she follows up No further intervention inpatient Plan/VTE VTE Prophylaxis Ordered?: Yes VS, I&O, 24H, Fishbone Vital Signs/I&O Vital Signs Date Time Temp Pulse Resp B/P (MAP) Pulse Ox O2 Delivery O2 Flow Rate FiO2 06/20/19 08:55 77 159/69 06/20/19 06:00 97.5 18 94 I&O- Last 24 Hours up to 6 AM 06/20/19 06:00 Intake Total 1010 ml Balance 1010 ml Laboratory Data 24H LABS Laboratory Tests 2 06/20/19 05:48: Immature Granulocyte % (Auto) 1.8, White Blood Count 13.3H, Red Blood Count 3.85L, Hemoglobin 10.2L, Hematocrit 31.8L, Mean Corpuscular Volume 82.6, Mean Corpuscular Hemoglobin 26.5L, Mean Corpuscular Hemoglobin Concent 32.1, Red Cell Distribution Width 14.4, Platelet Count 857H, Neutrophils (%) (Auto) 87.6H, Lymphocytes (%) (Auto) 2.7L, Monocytes (%) (Auto) 7.8H, Eosinophils (%) (Auto) 0.0, Basophils (%) (Auto) 0.1, Neutrophils # (Auto) 11.6H, Lymphocytes # (Auto) 0.4L, Monocytes # (Auto) 1.0H, Eosinophils # (Auto) 0.0, Basophils # (Auto) 0.0, Nucleated Red Blood Cells % (auto) 0.0, Anion Gap 6L, Glomerular Filtration Rate > 60.0, Blood Urea Nitrogen 23H, Creatinine 0.52L, Sodium Level 131L, Potassium Level 4.0, Chloride Level 99, Carbon Dioxide Level 26, Calcium Level 9.4, Aspartate Amino Transf (AST/SGOT) 17, Alanine Aminotransferase (ALT/SGPT) 18, Alkaline Phosphatase 79, Total Bilirubin 0.5, Total Protein 5.4L, Albumin 1.8L, Albumin/Globulin Ratio 0.50L CBC/BMP Laboratory Tests 06/20/19 05:48 Red Blood Count 3.85 L, Mean Corpuscular Volume 82.6, Mean Corpuscular Hemoglobin 26.5 L, Mean Corpuscular Hemoglobin Concent 32.1, Red Cell Distribution Width 14.4, Neutrophils (%) (Auto) 87.6 H, Lymphocytes (%) (Auto) 2.7 L, Monocytes (%) (Auto) 7.8 H, Eosinophils (%) (Auto) 0.0, Basophils (%) (Auto) 0.1, Neutrophils # (Auto) 11.6 H, Lymphocytes # (Auto) 0.4 L, Monocytes # (Auto) 1.0 H, Eosinophils # (Auto) 0.0, Basophils # (Auto) 0.0, Calcium Level 9.4, Aspartate Amino Transf (AST/SGOT) 17, Alanine Aminotransferase (ALT/SGPT) 18, Alkaline Phosphatase 79, Total Bilirubin 0.5, Total Protein 5.4 L, Albumin 1.8 L Microbiology Microbiology 06/12/19 Blood Culture - Final, Complete Staphylococcus Capitis 06/12/19 Blood Culture - Final, Complete NO GROWTH AFTER 5 DAYS 06/12/19 Urine Culture - Final, Complete Aerococcus Urinae RAQUEL ROSEN MD Jun 20, 2019 10:41
[2019-06-20] MEDS: NITROFURANTOIN (MACROBID) 100 MG CAP PO SCH ×2 (11:28→21:15)
[2019-06-20 14:00] VITALS: BP 140/64
[2019-06-20 22:00] VITALS: BP 159/70
[2019-06-21 06:00] VITALS: BP_SYST 108; BP_SYST 140; BP_DIAS 52; BP_DIAS 86
[2019-06-21 06:08] LABS: BASO % 0.1 % (0.0-1.0); EOS % 0.1 % (0.0-3.0); HEMATOCRIT 31.9 % (36.0-47.0); HEMOGLOBIN 10.2 g/dl (12.0-15.5); LYMPH # 0.4 10^3/uL (1.5-4.5); LYMPH % 2.6 % (24.0-44.0); MEAN CORPUSCULAR HEMOGLOBIN 26.5 pg (27.0-33.0); MEAN CORPUSCULAR VOLUME 82.9 fl (80.0-96.0); MONO # 1.4 10^3/uL (0.0-0.8); MONO % 8.9 % (0.0-5.0); NEUTROPHILS # 13.7 10^3/uL (1.8-7.7); NEUTROPHILS % 86.6 % (36.0-66.0); PLATELET COUNT, AUTOMATED 833 10^3/uL (150-450); RED BLOOD COUNT 3.85 10^6/uL (4.00-5.40); WHITE BLOOD COUNT 15.9 10^3/uL (4.0-10.0)
[2019-06-21 06:29] LABS: ALBUMIN 1.9 GM/DL (3.2-5.2); ALT/SGPT 14 U/L (12-78); BILIRUBIN,TOTAL 0.3 MG/DL (0.2-1.0); BLOOD UREA NITROGEN 21 MG/DL (7-18); CALCIUM LEVEL 9.4 MG/DL (8.8-10.2); CARBON DIOXIDE LEVEL 27 MEQ/L (21-32); CHLORIDE LEVEL 99 MEQ/L (98-107); CREATININE FOR GFR 0.48 MG/DL (0.55-1.30); GLOMERULAR FILTRATION RATE > 60.0 (>32); GLUCOSE, FASTING 117 MG/DL (70-100); POTASSIUM SERUM 3.8 MEQ/L (3.5-5.1); SODIUM LEVEL 132 MEQ/L (136-145); TOTAL PROTEIN 5.5 GM/DL (6.4-8.2)
[2019-06-21 07:39] VITALS: BP 169/80
[2019-06-21] MEDS: ATENOLOL 50 MG TAB PO SCH (08:49)
[2019-06-21] MEDS: LACTOBACILLUS ACIDOPHILUS CAP (BACID) PO SCH ×3 (08:49→17:55)
[2019-06-21] MEDS: NITROFURANTOIN (MACROBID) 100 MG CAP PO SCH (08:49)
[2019-06-21] MEDS: ASPIRIN 325 MG TAB PO SCH ×2 (08:50→09:00)
[2019-06-21] MEDS: ENOXAPARIN 40 MG/0.4 ML SYRINGE (J1650) SC SCH ×2 (08:50→09:00)
[2019-06-21] MEDS: SODIUM CHLORIDE 1 GM TAB PO SCH ×3 (08:50→21:00)
--- NOTE | 2019-06-21 11:55 | IPNPDOC ---
Subjective Date Seen The patient was seen on 06/21/19. Subjective Chief Complaint/HPI Patient is comfortable, afebrile, in no apparent distress General: Denies: ROS Unobtainable, Chills, Night Sweats, Fatigue, Malaise, Normal Appetite, Other Symptoms Constitutional: Denies: Chills, Fever, Malaise, Night Sweats, Weakness, Fatigue, Weight Loss, Lethargy, Other Eyes: Denies: Pain, Vision change, Conjunctivae inflammation, Eyelid inflammation, Redness, Other ENT: Denies: Head Aches, Ear Pain, Dysphagia, Sinus Congestion, Post Nasal Drip, Sore Throat, Epistaxis, Other Symptoms Skin: Denies: Rash, Lesions, Jaundice, Bruising, Itching, Dry, Breakdown, Nail Changes, Other Pulmonary: Denies: Dyspnea, Cough, Pleuritic Chest Pain, Other Symptoms Cardiovascular: Denies: Chest Pain, Palpitations, Orthopnea, Paroxysmal Noc. Dyspnea, Edema, Lt Headedness, Other Symptoms Gastrointestinal: Denies: Nausea, Vomiting, Abdominal Pain, Diarrhea, Constipation, Melena, Hematochezia, Other Symptoms Endocrine: Denies: Polydipsia, Polyphagia, Polyuria, Heat Intolerance, Cold Intolerance, Other Endocrine Sx Musculoskeletal: Denies: Neck Pain, Back Pain, Shoulder Pain, Arm Pain, Hand Pain, Leg Pain, Foot Pain, Joint Pain, Muscle Pain, Spasms, Other Symptoms Neurological: Denies: Weakness, Numbness, Incoordination, Change in speech, Confusion, Seizures, Other Symptoms Objective Physical Examination General Exam: Positive: Alert, Cooperative, Other (, lethargic, not does not respond to vocal or tactile stimuli) Eye Exam: Positive: PERRLA ENT Exam: Positive: Atraumatic, Mucous membr. moist/pink Neck Exam: Positive: Supple Chest Exam: Positive: Clear to auscultation, Normal air movement Heart Exam: Positive: Rate Normal, Normal S1, Normal S2 Abdomen Exam: Positive: Normal bowel sounds Extremity Exam: Positive: Edema, Normal pulses Skin Exam: Positive: Nl turgor and temperature Neuro Exam: Positive: Other (, unable to do neuro exam secondary to patient mental status) Assessment /Plan Problems (1) Metabolic encephalopathy Status: Resolved Problem Text: Patient is awake, alert, oriented 3 Altered mental status is completely resolved DC seizure precautions DC telemetry Activity out of bed as tolerated Physical therapy in progress Cook catheter was DC'd Patient will be transferred to subacute area facility in a.m. (2) Hyponatremia Status: Acute Problem Text: Progressively resolving Serum sodium is 130 Today. Patient is asymptomatic , probably chronic in nature She is also on sodium chloride tablets Will implement fluid restriction to 1500 mL in 24 hours Repeat sodium level in a.m. (3) Urinary tract infection Status: Acute Problem Text: Patient is still has increasing WBC count of 15.9 out of a repeat urine culture. Repeat blood cultures and change antibiotics to Zosyn 3.35 mg IV every 6 hours Repeat a.m. CBC and CMP Blood cultures. Repeat pending , Urine cultures, repeat pending (4) Bladder carcinoma Status: Chronic Problem Text: Patient is aware about bladder carcinoma Urology consult as an inpatient has been requested today Further, as per urology recommendations Plan/VTE VTE Prophylaxis Ordered?: Yes VS, I&O, 24H, Fishbone Vital Signs/I&O Vital Signs Date Time Temp Pulse Resp B/P (MAP) Pulse Ox O2 Delivery O2 Flow Rate FiO2 06/21/19 08:49 71 169/80 06/21/19 07:39 98.3 24 93 I&O- Last 24 Hours up to 6 AM 06/21/19 05:59 Intake Total 790 ml Output Total 0 ml Balance 790 ml Laboratory Data 24H LABS Laboratory Tests 2 06/21/19 05:33: Immature Granulocyte % (Auto) 1.7, White Blood Count 15.9H, Red Blood Count 3.85L, Hemoglobin 10.2L, Hematocrit 31.9L, Mean Corpuscular Volume 82.9, Mean Corpuscular Hemoglobin 26.5L, Mean Corpuscular Hemoglobin Concent 32.0, Red Cell Distribution Width 14.6H, Platelet Count 833H, Neutrophils (%) (Auto) 86.6H, Lymphocytes (%) (Auto) 2.6L, Monocytes (%) (Auto) 8.9H, Eosinophils (%) (Auto) 0.1, Basophils (%) (Auto) 0.1, Neutrophils # (Auto) 13.7H, Lymphocytes # (Auto) 0.4L, Monocytes # (Auto) 1.4H, Eosinophils # (Auto) 0.0, Basophils # (Auto) 0.0, Nucleated Red Blood Cells % (auto) 0.0, Anion Gap 6L, Glomerular Filtration Rate > 60.0, Blood Urea Nitrogen 21H, Creatinine 0.48L, Sodium Level 132L, Potassium Level 3.8, Chloride Level 99, Carbon Dioxide Level 27, Calcium Level 9.4, Aspartate Amino Transf (AST/SGOT) 13, Alanine Aminotransferase (ALT/SGPT) 14, Alkaline Phosphatase 75, Total Bilirubin 0.3, Total Protein 5.5L, Albumin 1.9L, Albumin/Globulin Ratio 0.53L CBC/BMP Laboratory Tests 06/21/19 05:33 Red Blood Count 3.85 L, Mean Corpuscular Volume 82.9, Mean Corpuscular Hemoglobin 26.5 L, Mean Corpuscular Hemoglobin Concent 32.0, Red Cell Distribution Width 14.6 H, Neutrophils (%) (Auto) 86.6 H, Lymphocytes (%) (Auto) 2.6 L, Monocytes (%) (Auto) 8.9 H, Eosinophils (%) (Auto) 0.1, Basophils (%) (Auto) 0.1, Neutrophils # (Auto) 13.7 H, Lymphocytes # (Auto) 0.4 L, Monocytes # (Auto) 1.4 H, Eosinophils # (Auto) 0.0, Basophils # (Auto) 0.0, Calcium Level 9.4, Aspartate Amino Transf (AST/SGOT) 13, Alanine Aminotransferase (ALT/SGPT) 14, Alkaline Phosphatase 75, Total Bilirubin 0.3, Total Protein 5.5 L, Albumin 1.9 L Microbiology Microbiology 06/21/19 Blood Culture, Received Pending 06/12/19 Blood Culture - Final, Complete Staphylococcus Capitis 06/12/19 Blood Culture - Final, Complete NO GROWTH AFTER 5 DAYS 06/12/19 Urine Culture - Final, Complete Aerococcus Urinae RAQUEL ROSEN MD Jun 21, 2019 11:55
[2019-06-21] MEDS: PIPERACILLIN/TAZOBACTAM SOD 3.375 GM in D5W MINI-BAG PLUS 50 ML IV SCH ×2 (12:20→17:55)
[2019-06-21 14:00] VITALS: BP 167/78
[2019-06-21 22:00] VITALS: BP 160/81
[2019-06-22] MEDS: PIPERACILLIN/TAZOBACTAM SOD 3.375 GM in D5W MINI-BAG PLUS 50 ML IV SCH ×3 (01:00→05:31)
[2019-06-22 06:00] VITALS: BP 156/79
[2019-06-22 06:05] LABS: BASO % 0.1 % (0.0-1.0); HEMATOCRIT 33.6 % (36.0-47.0); HEMOGLOBIN 10.9 g/dl (12.0-15.5); LYMPH # 0.5 10^3/uL (1.5-4.5); LYMPH % 3.1 % (24.0-44.0); MEAN CORPUSCULAR HEMOGLOBIN 27.6 pg (27.0-33.0); MEAN CORPUSCULAR HGB CONC 32.4 g/dl (32.0-36.5); MEAN CORPUSCULAR VOLUME 85.1 fl (80.0-96.0); MONO # 1.3 10^3/uL (0.0-0.8); MONO % 8.3 % (0.0-5.0); NEUTROPHILS # 13.3 10^3/uL (1.8-7.7); NEUTROPHILS % 86.9 % (36.0-66.0); PLATELET COUNT, AUTOMATED 797 10^3/uL (150-450); RED BLOOD COUNT 3.95 10^6/uL (4.00-5.40); WHITE BLOOD COUNT 15.3 10^3/uL (4.0-10.0)
[2019-06-22 06:28] LABS: ALBUMIN 1.8 GM/DL (3.2-5.2); ALT/SGPT 12 U/L (12-78); BILIRUBIN,TOTAL 0.3 MG/DL (0.2-1.0); BLOOD UREA NITROGEN 20 MG/DL (7-18); CALCIUM LEVEL 9.7 MG/DL (8.8-10.2); CARBON DIOXIDE LEVEL 26 MEQ/L (21-32); CHLORIDE LEVEL 100 MEQ/L (98-107); CREATININE FOR GFR 0.47 MG/DL (0.55-1.30); GLOMERULAR FILTRATION RATE > 60.0 (>32); GLUCOSE, FASTING 115 MG/DL (70-100); POTASSIUM SERUM 3.9 MEQ/L (3.5-5.1); SODIUM LEVEL 136 MEQ/L (136-145); TOTAL PROTEIN 5.3 GM/DL (6.4-8.2)
[2019-06-22] MEDS: SODIUM CHLORIDE 1 GM TAB PO SCH ×2 (09:00→21:00)
[2019-06-22] MEDS: ASPIRIN 325 MG TAB PO SCH (09:00)
[2019-06-22] MEDS: ATENOLOL 50 MG TAB PO SCH (09:30)
[2019-06-22] MEDS: ENOXAPARIN 40 MG/0.4 ML SYRINGE (J1650) SC SCH (09:30)
[2019-06-22] MEDS: LACTOBACILLUS ACIDOPHILUS CAP (BACID) PO SCH ×3 (09:30→17:40)
--- NOTE | 2019-06-22 10:29 | CR ---
DATE OF CONSULTATION: 06/22/2019 REQUESTING PHYSICIAN: Hospitalist. REASON FOR CONSULTATION: Treatment of urinary tract infection with Aerococcus and persistent leukocytosis. HISTORY OF PRESENT ILLNESS: Mrs. Rehman is an 83-year-old female with a history of bladder mass and hematuria since November 2018. The patient was brought into the hospital because of altered mental status, dizziness and weakness. She was being treated for urinary tract infection and was found to be on the floor in her apartment. She had a sodium of 118 on admission. The patient has been treated with sodium supplement. fluid restriction and broad-spectrum antibiotics for a urine culture that had Aerococcus. The patient's workup for her bladder mass has been attempted in the past month by urology but discontinued due to discomfort as an outpatient. She is anxious to go to rehab and then go to a ch[facility] with her son who is handicapped as well. The plan would be that for them to go to [facility] in [place]. ALLERGIES: NO KNOWN DRUG ALLERGIES. MEDICATIONS: - Zosyn 06/12 to 06/14/2019. The patient was switched to IV Unasyn from 06/14 to 06/16/2019. She was then switched to clindamycin from 06/16 to 06/20/2019 and then back to IV Zosyn on 06/21/2019 due to increased white count. The patient states she has no symptoms except for intermittent hematuria, which has been persistent since the past 6 months. She has no dysuria, flank pain. She has no nausea, vomiting. She has had chronic diarrhea but stool for C diff was sent on 06/19/2019 and was negative. The patient remains afebrile. PAST MEDICAL HISTORY: Significant for bladder mass with hematuria, hypertension and hyperlipidemia. SOCIAL HISTORY: She lives with her son who is handicapped, her son is Solo. She has another son, Rory, who is her healthcare proxy. LABORATORIES: White count is 8.9, hemoglobin 10.2, hematocrit 31.9, platelets 833, 86% neutrophils, 2% lymphocytes, 9% monocytes. Sodium 132, potassium 3.8, chloride 99, bicarbonate 27, BUN 21, creatinine 0.40, glucose 117, calcium 9.4, bilirubin 0.3, AST 13, ALT 14, alkaline phosphatase 75, total protein 5.5, albumin 1.9. Urine drug screen on admission was negative. Salicylate, Tylenol level and alcohol level were negative. Stool for C diff on 06/19/2019 negative. Blood culture on 06/12/2019 was positive, one out of two, for Staphylococcus capitis. Urine culture was positive for Aerococcus urinae more than 100,000. Repeat blood culture on 06/21/2019 is pending. Repeat urine culture on 06/21/2019. IMAGING STUDIES: CT abdomen and pelvis done on 06/12/2019, bladder wall mass superiorly to the right of midline measuring 3 x 5 x 5.5 cm, irregular margins, no change from prior CT done 3 weeks ago, air in the bladder related to the Cook, highly suspicious for bladder malignancy. No hydronephrosis, hydroureter, renal or ureteral calculi. She also has diffuse colitis in the mesentery was some ascites. PHYSICAL EXAMINATION: Temperature is 98.1, pulse 72, respirations 19, blood pressure 160/81, O2 saturation 97% on room air. Heart: Normal S1, S2. No murmurs, rubs or gallops. Lungs are clear. Diminished at the bases. No rales. Abdomen is obese, soft, slightly tender diffusely. Extremities: +1 pitting edema bilaterally. Thickened toenails. No rashes. Neurologic: The patient has a slight tremor with cogwheel rigidity. Flat affect but otherwise she is alert, oriented times three and motor strength is normal. IMPRESSION: 83-year-old female with a bladder mass, highly suggestive of a bladder cancer with a urine culture positive for Aerococcus urinae, who has been treated with multiple antibiotics. She has persistent leukocytosis but the patient is asymptomatic, is most likely reactive along with thrombocytosis. The patient is asymptomatic at this point. Blood culture with Staphylococcus is a contaminant. At this point, the patient has diarrhea but negative for C diff but is at very high risk for this. PLAN: Discontinue IV antibiotics. The patient has been treated with broad-spectrum antibiotics, which are ample enough for Aerococcus. A repeat urine culture has been sent. Blood culture was a contaminant. I would not pursue that any further. The patient has agreed on having a cystoscopy, whether it she would be done inpatient or outpatient. I suggest it to be done and the patient as it was not successful in the office last month. The patient could be discharged from an infectious disease standpoint. Obtain CT of the chest to rule out of lung metastasis as a workup of bladder cancer and possible syndrome of inappropriate antidiuretic hormone secretion (SIADH).
--- NOTE | 2019-06-22 11:02 | IPNPDOC ---
Subjective Date Seen The patient was seen on 06/22/19. Subjective Chief Complaint/HPI Patient is comfortable in no distress. Vital signs are stable. Afebrile General: Denies: ROS Unobtainable, Chills, Night Sweats, Fatigue, Malaise, Normal Appetite, Other Symptoms Skin: Denies: Rash, Lesions, Jaundice, Bruising, Itching, Dry, Breakdown, Nail Changes, Other Pulmonary: Denies: Dyspnea, Cough, Pleuritic Chest Pain, Other Symptoms Cardiovascular: Denies: Chest Pain, Palpitations, Orthopnea, Paroxysmal Noc. Dyspnea, Edema, Lt Headedness, Other Symptoms Gastrointestinal: Denies: Nausea, Vomiting, Abdominal Pain, Diarrhea, Constipation, Melena, Hematochezia, Other Symptoms Musculoskeletal: Denies: Neck Pain, Back Pain, Shoulder Pain, Arm Pain, Hand Pain, Leg Pain, Foot Pain, Joint Pain, Muscle Pain, Spasms, Other Symptoms Neurological: Denies: Weakness, Numbness, Incoordination, Change in speech, Confusion, Seizures, Other Symptoms Objective Physical Examination General Exam: Positive: Alert, Cooperative, Other (, lethargic, not does not respond to vocal or tactile stimuli) Eye Exam: Positive: PERRLA ENT Exam: Positive: Atraumatic, Mucous membr. moist/pink Neck Exam: Positive: Supple Chest Exam: Positive: Clear to auscultation, Normal air movement Heart Exam: Positive: Rate Normal, Normal S1, Normal S2 Abdomen Exam: Positive: Normal bowel sounds Extremity Exam: Positive: Edema, Normal pulses Skin Exam: Positive: Nl turgor and temperature Assessment /Plan Problems (1) Metabolic encephalopathy Status: Resolved Problem Text: Patient is awake, alert, oriented 3 Altered mental status is completely resolved DC seizure precautions DC telemetry Activity out of bed as tolerated Physical therapy in progress Cook catheter was DC'd Patient will be transferred to subacute area facility was the urology workup is complete (2) Hyponatremia Status: Acute Problem Text: Resolved Serum sodium is 136 Today. Patient is asymptomatic , probably chronic in nature She is also on sodium chloride tablets Will implement fluid restriction to 1500 mL in 24 hours , CMP in a.m. (3) Urinary tract infection Status: Acute Problem Text: Patient is still has increasing WBC count of 15.[address] alcantara, blood cultures and urine cultures had been repeated and patient will continue on Zosyn in the meantime Further recommendation as per infectious disease CBC in a.m. Follow repeat urine and blood cultures (4) Bladder carcinoma Status: Chronic Problem Text: Discussed with Dr. Portillo over the phone He will see patient and tried to schedule her for cystoscopy with biopsy of the lesion in the bladder in next day or 2 Afterward dependence on upon urology recommendation. She can be transferred to subacute rehabilitation facility Plan/VTE VTE Prophylaxis Ordered?: Yes VS, I&O, 24H, Fishbone Vital Signs/I&O Vital Signs Date Time Temp Pulse Resp B/P (MAP) Pulse Ox O2 Delivery O2 Flow Rate FiO2 06/22/19 09:30 73 156/79 06/22/19 06:00 98.4 17 98 I&O- Last 24 Hours up to 6 AM 06/22/19 05:59 Intake Total 240 ml Output Total 0 ml Balance 240 ml Laboratory Data 24H LABS Laboratory Tests 2 06/22/19 05:42: Immature Granulocyte % (Auto) 1.6, White Blood Count 15.3H, Red Blood Count 3.95L, Hemoglobin 10.9L, Hematocrit 33.6L, Mean Corpuscular Volume 85.1, Mean Corpuscular Hemoglobin 27.6, Mean Corpuscular Hemoglobin Concent 32.4, Red Cell Distribution Width 14.6H, Platelet Count 797H, Neutrophils (%) (Auto) 86.9H, Lymphocytes (%) (Auto) 3.1L, Monocytes (%) (Auto) 8.3H, Eosinophils (%) (Auto) 0.0, Basophils (%) (Auto) 0.1, Neutrophils # (Auto) 13.3H, Lymphocytes # (Auto) 0.5L, Monocytes # (Auto) 1.3H, Eosinophils # (Auto) 0.0, Basophils # (Auto) 0.0, Nucleated Red Blood Cells % (auto) 0.0, Anion Gap 10, Glomerular Filtration Rate > 60.0, Blood Urea Nitrogen 20H, Creatinine 0.47L, Sodium Level 136, Potassium Level 3.9, Chloride Level 100, Carbon Dioxide Level 26, Calcium Level 9.7, Aspartate Amino Transf (AST/SGOT) 12, Alanine Aminotransferase (ALT/SGPT) 12, Alkaline Phosphatase 71, Total Bilirubin 0.3, Total Protein 5.3L, Albumin 1.8L, Albumin/Globulin Ratio 0.51L CBC/BMP Laboratory Tests 06/22/19 05:42 Red Blood Count 3.95 L, Mean Corpuscular Volume 85.1, Mean Corpuscular Hemoglobin 27.6, Mean Corpuscular Hemoglobin Concent 32.4, Red Cell Distribution Width 14.6 H, Neutrophils (%) (Auto) 86.9 H, Lymphocytes (%) (Auto) 3.1 L, Monocytes (%) (Auto) 8.3 H, Eosinophils (%) (Auto) 0.0, Basophils (%) (Auto) 0.1, Neutrophils # (Auto) 13.3 H, Lymphocytes # (Auto) 0.5 L, Monocytes # (Auto) 1.3 H, Eosinophils # (Auto) 0.0, Basophils # (Auto) 0.0, Calcium Level 9.7, Aspartate Amino Transf (AST/SGOT) 12, Alanine Aminotransferase (ALT/SGPT) 12, Alkaline Phosphatase 71, Total Bilirubin 0.3, Total Protein 5.3 L, Albumin 1.8 L Microbiology Microbiology 06/21/19 Blood Culture - Preliminary, Resulted No growth after 24 hours . All specim... 06/12/19 Blood Culture - Final, Complete Staphylococcus Capitis 06/12/19 Blood Culture - Final, Complete NO GROWTH AFTER 5 DAYS 06/21/19 Urine Culture, Received Pending 06/12/19 Urine Culture - Final, Complete Aerococcus Urinae RAQUEL ROSEN MD Jun 22, 2019 11:01
[2019-06-22 14:00] VITALS: BP 158/73
--- NOTE | 2019-06-22 14:42 | REPVR ---
EXAM: CT Chest Without Contrast EXAM DATE/TIME: 06/21/2019 5:54 PM CLINICAL HISTORY: 83 years old, female; Condition or disease; Other: Question mets; Additional info: Bladder cancer possible mets? TECHNIQUE: Imaging protocol: Computed tomography images of the chest without contrast. 3D rendering: MIP reconstructed images were created and reviewed. Radiation optimization: All CT scans at this facility use at least one of these dose optimization techniques: automated exposure control; mA and/or kV adjustment per patient size (includes targeted exams where dose is matched to clinical indication); or iterative reconstruction. COMPARISON: CR PORTABLE CHEST X-RAY 06/12/2019 7:35 AM FINDINGS: Thyroid: An azygos lobe is noted. Lungs: Moderate secondary bilateral lower lobe atelectasis and minimal scattered atelectasis and possible infiltrate. Pleural space: Mild bilateral pleural effusions. Heart: The left atrium measures 5.2 cm in its AP dimension. Pulmonary arteries: The main pulmonary artery measures 39 mm. Aorta: The ascending thoracic aorta measures 34 mm. Lymph nodes: Unremarkable. No enlarged lymph nodes. Bones/joints: Moderate compression of L1. Probable hemangioma of T12. Slight anterior wedge configuration of T7. Soft tissues: Unremarkable. Gallbladder and bile ducts: The gallbladder is contracted with no stones. Intraperitoneal space: Peritoneal ascites. IMPRESSION: 1. Mild bilateral pleural effusions with moderate secondary bilateral lower lobe atelectasis and minimal scattered atelectasis or infiltrate in the remaining lungs. 2. Mild cardiomegaly. 3. Peritoneal ascites. 4. Compression of L1 and slight wedge configuration of T7. Electronically signed by: Thierno Roque On 06/22/2019 14:42:10 PM
[2019-06-22 22:00] VITALS: BP 152/86
[2019-06-23 06:02] LABS: BASO % 0.1 % (0.0-1.0); HEMOGLOBIN 10.1 g/dl (12.0-15.5); LYMPH # 0.6 10^3/uL (1.5-4.5); LYMPH % 4.3 % (24.0-44.0); MEAN CORPUSCULAR HEMOGLOBIN 26.5 pg (27.0-33.0); MEAN CORPUSCULAR HGB CONC 31.6 g/dl (32.0-36.5); MONO # 1.6 10^3/uL (0.0-0.8); MONO % 10.8 % (0.0-5.0); NEUTROPHILS # 12.1 10^3/uL (1.8-7.7); NEUTROPHILS % 83.2 % (36.0-66.0); PLATELET COUNT, AUTOMATED 772 10^3/uL (150-450); RED BLOOD COUNT 3.81 10^6/uL (4.00-5.40); WHITE BLOOD COUNT 14.6 10^3/uL (4.0-10.0)
[2019-06-23 06:22] LABS: ALBUMIN 1.9 GM/DL (3.2-5.2); ALT/SGPT 10 U/L (12-78); BILIRUBIN,TOTAL 0.3 MG/DL (0.2-1.0); BLOOD UREA NITROGEN 22 MG/DL (7-18); CALCIUM LEVEL 9.7 MG/DL (8.8-10.2); CARBON DIOXIDE LEVEL 28 MEQ/L (21-32); CHLORIDE LEVEL 102 MEQ/L (98-107); CREATININE FOR GFR 0.51 MG/DL (0.55-1.30); GLOMERULAR FILTRATION RATE > 60.0 (>32); GLUCOSE, FASTING 116 MG/DL (70-100); POTASSIUM SERUM 3.7 MEQ/L (3.5-5.1); SODIUM LEVEL 136 MEQ/L (136-145); TOTAL PROTEIN 5.2 GM/DL (6.4-8.2)
[2019-06-23] MEDS: LACTOBACILLUS ACIDOPHILUS CAP (BACID) PO SCH ×3 (08:00→17:14)
[2019-06-23] MEDS: ASPIRIN 325 MG TAB PO SCH (09:00)
[2019-06-23] MEDS: ATENOLOL 50 MG TAB PO SCH (09:00)
[2019-06-23] MEDS: SODIUM CHLORIDE 1 GM TAB PO SCH ×2 (09:00→20:18)
[2019-06-23] MEDS: ENOXAPARIN 40 MG/0.4 ML SYRINGE (J1650) SC SCH (09:00)
--- NOTE | 2019-06-23 11:09 | IPN ---
DATE: 06/22/2019 Vania has no new complaints today. She states she was able to get out of bed and walk to the bathroom with physical therapy. No nausea, vomiting or diarrhea. No dysuria, hematuria. No back pain or flank pain. LABS: White count 15.3, hemoglobin 10.9, hematocrit 33.6, platelets 797, 87% neutrophils, 3% lymphocytes, 8% monocytes. Sodium 136, potassium 3.9, chloride 100, bicarb 26, BUN 20, creatinine 0.47, glucose 115, calcium 9.7, AST 12, ALT 12, alk phos 71. CT chest showed compression fracture of L1 and slight wedge of T7, peritoneal ascites, mild bilateral pleural effusion with atelectasis and mild cardiomegaly. Blood culture from 06/21 is no growth after 24 hours. Urine culture is pending. IMPRESSION: 1. Urinary tract infection with Aerococcus urinae status post 10 days of multiple antibiotics including Unasyn, Zosyn and clindamycin. Currently patient is asymptomatic. 2. Leukocytosis and thrombocytosis most likely reactive, possibly related to bladder cancer. I would not treat her with any more antibiotics at this time unless she has symptomatic urinary tract infection. 3. Staph crepitus blood culture is a contaminant. PLAN: Infectious disease signing off. I would not recommend any more antibiotics at this time.
[2019-06-23 14:00] VITALS: BP 152/74
--- NOTE | 2019-06-23 19:43 | IPNPDOC ---
Date Seen The patient was seen on 06/23/19. Progress Note SUBJECTIVE: Patient has no complaints today. Afebrile overnight. WBC down to 14.6 from 15.3. OBJECTIVE PHYSICAL EXAMINATION: VITAL SIGNS: Please see below. General: No acute distress, Alert Eyes: Normal sclera, EOMI, AIDAN HENT: Atraumatic, neck supple, moist mucous membranes Cardiovascular: Normal rate, normal rhythm. No murmurs appreciated. Pulmonary: Clear to auscultation b/l, no wheezing GI: Soft, nontender, nondistended Skin: Warm and dry Neuro: CN grossly intact. No focal deficits. Strengths equal b/l. Psych: oriented x 3 LABORATORY DATA, IMAGING STUDIES, MICROBIOLOGY: Please see below. DVT prophylaxis ordered?: Lovenox ASSESSMENT AND PLAN: 1. Metabolic encephalopathy - resolved. walking around freely. 2. Hyponatremia - Na had corrected. patient on salt tablets but had been refusing it for the past several days anyway. 3. Bacturia - Has had treatment for UTI multiple times. ID had evaluated, no recommendation for further antibiotics at this time. - Will hold off on any treatment unless patient is symptomatic. 4. Bladder ca - Will need cystoscopy with biopsy in bladder. - Had discussed with Dr. Portillo about procedure. Previously documented planned for this week? - Have to f/u with urology, noted to have a concern for bacteruria? VS, I&O, 24H, [facility] Vital Signs/I&O Vital Signs Date Time Temp Pulse Resp B/P (MAP) Pulse Ox O2 Delivery O2 Flow Rate FiO2 06/23/19 14:00 97.6 73 19 152/74 (100) 94 I&O- Last 24 Hours up to 6 AM 06/23/19 06:00 Intake Total 460 ml Balance 460 ml Laboratory Data 24H LABS Laboratory Tests 2 06/23/19 05:30: Immature Granulocyte % (Auto) 1.6, White Blood Count 14.6H, Red Blood Count 3.81L, Hemoglobin 10.1L, Hematocrit 32.0L, Mean Corpuscular Volume 84.0, Mean Corpuscular Hemoglobin 26.5L, Mean Corpuscular Hemoglobin Concent 31.6L, Red Cell Distribution Width 14.7H, Platelet Count 772H, Neutrophils (%) (Auto) 83.2H, Lymphocytes (%) (Auto) 4.3L, Monocytes (%) (Auto) 10.8H, Eosinophils (%) (Auto) 0.0, Basophils (%) (Auto) 0.1, Neutrophils # (Auto) 12.1H, Lymphocytes # (Auto) 0.6L, Monocytes # (Auto) 1.6H, Eosinophils # (Auto) 0.0, Basophils # (Auto) 0.0, Nucleated Red Blood Cells % (auto) 0.0, Anion Gap 6L, Glomerular Filtration Rate > 60.0, Blood Urea Nitrogen 22H, Creatinine 0.51L, Sodium Level 136, Potassium Level 3.7, Chloride Level 102, Carbon Dioxide Level 28, Calcium Level 9.7, Aspartate Amino Transf (AST/SGOT) 11, Alanine Aminotransferase (ALT/SGPT) 10L, Alkaline Phosphatase 65, Total Bilirubin 0.3, Total Protein 5.2L, Albumin 1.9L, Albumin/Globulin Ratio 0.58L CBC/BMP Laboratory Tests 06/23/19 05:30 Red Blood Count 3.81 L, Mean Corpuscular Volume 84.0, Mean Corpuscular Hemoglobin 26.5 L, Mean Corpuscular Hemoglobin Concent 31.6 L, Red Cell Distribution Width 14.7 H, Neutrophils (%) (Auto) 83.2 H, Lymphocytes (%) (Auto) 4.3 L, Monocytes (%) (Auto) 10.8 H, Eosinophils (%) (Auto) 0.0, Basophils (%) (Auto) 0.1, Neutrophils # (Auto) 12.1 H, Lymphocytes # (Auto) 0.6 L, Monocytes # (Auto) 1.6 H, Eosinophils # (Auto) 0.0, Basophils # (Auto) 0.0, Calcium Level 9.7, Aspartate Amino Transf (AST/SGOT) 11, Alanine Aminotransferase (ALT/SGPT) 10 L, Alkaline Phosphatase 65, Total Bilirubin 0.3, Total Protein 5.2 L, Albumin 1.9 L Microbiology Microbiology 06/21/19 Blood Culture - Preliminary, Resulted No Growth after 48 hours. All Specime... 06/21/19 Urine Culture - Final, Complete Pseudomonas Aeruginosa GENE SANTIZO MD Jun 23, 2019 19:42
[2019-06-23 22:00] VITALS: BP 145/75
[2019-06-24 06:00] VITALS: BP 133/84
[2019-06-24 06:20] VITALS: BP 135/73
[2019-06-24] MEDS: LACTOBACILLUS ACIDOPHILUS CAP (BACID) PO SCH ×3 (08:14→18:22)
[2019-06-24] MEDS: ASPIRIN 325 MG TAB PO SCH (08:14)
[2019-06-24] MEDS: ATENOLOL 50 MG TAB PO SCH (08:14)
[2019-06-24] MEDS: SODIUM CHLORIDE 1 GM TAB PO SCH ×2 (08:16→20:03)
[2019-06-24] MEDS: ACETAMINOPHEN TAB 650MG DOSE (2X325MG) PO PRN (08:16)
[2019-06-24 14:00] VITALS: BP 130/70
[2019-06-24] MEDS: CEFEPIME HCL 1 GM in D5W MINI-BAG PLUS 50 ML IV SCH (14:34)
[2019-06-24] MEDS: ENOXAPARIN 40 MG/0.4 ML SYRINGE (J1650) SC SCH (14:34)
--- NOTE | 2019-06-24 18:54 | IPNPDOC ---
Date Seen The patient was seen on 06/24/19. Progress Note SUBJECTIVE: Patient has no complaints today. Appear more comfortable and more talkative than yesterday. Reports discomfort over suprapubic and periumbilical area. OBJECTIVE PHYSICAL EXAMINATION: VITAL SIGNS: Please see below. General: No acute distress, Alert Eyes: Normal sclera, EOMI, AIDAN HENT: Atraumatic, neck supple, moist mucous membranes Cardiovascular: Normal rate, normal rhythm. No murmurs appreciated. Pulmonary: Clear to auscultation b/l, no wheezing GI: Soft, nontender, nondistended Skin: Warm and dry Neuro: CN grossly intact. No focal deficits. Strengths equal b/l. Psych: oriented x 3 LABORATORY DATA, IMAGING STUDIES, MICROBIOLOGY: Please see below. DVT prophylaxis ordered?: Lovenox ASSESSMENT AND PLAN: 1. Metabolic encephalopathy - resolved. 2. Hyponatremia - Na had corrected. patient on salt tablets but had been refusing it for the past several days. 3. Bacturia - Has had treatment for UTI multiple times. ID had evaluated. - Urine culture most recently showed Pseudomonas. - started on cefepime, continue to complete course of 7 days. 4. Bladder ca - Will need cystoscopy with biopsy in bladder. - Plan to do with Urology/Dr. Portillo next friday after Abx treatment for UTI. Discharge to [place] tomorrow at 10:30 AM VS, I&O, 24H, Fishbone Vital Signs/I&O Vital Signs Date Time Temp Pulse Resp B/P (MAP) Pulse Ox O2 Delivery O2 Flow Rate FiO2 06/24/19 14:00 98.9 64 18 130/70 (90) 97 I&O- Last 24 Hours up to 6 AM 06/24/19 06:00 Intake Total 60 ml Output Total 0 ml Balance 60 ml Laboratory Data Microbiology Microbiology 06/21/19 Blood Culture - Preliminary, Resulted No Growth after 72 hours. All specime... 06/21/19 Urine Culture - Final, Complete Pseudomonas Aeruginosa GENE SANTIZO MD Jun 24, 2019 18:54
[2019-06-24 22:00] VITALS: BP 139/89
[2019-06-25] MEDS: CEFEPIME HCL 1 GM in D5W MINI-BAG PLUS 50 ML IV SCH (00:46)
[2019-06-25 06:00] VITALS: BP 149/72
[2019-06-25 06:11] LABS: BASO % 0.2 % (0.0-1.0); HEMATOCRIT 33.7 % (36.0-47.0); HEMOGLOBIN 10.8 g/dl (12.0-15.5); LYMPH # 0.5 10^3/uL (1.5-4.5); MEAN CORPUSCULAR HEMOGLOBIN 27.4 pg (27.0-33.0); MEAN CORPUSCULAR VOLUME 85.5 fl (80.0-96.0); MONO # 1.3 10^3/uL (0.0-0.8); MONO % 8.9 % (0.0-5.0); NEUTROPHILS # 12.9 10^3/uL (1.8-7.7); NEUTROPHILS % 85.8 % (36.0-66.0); PLATELET COUNT, AUTOMATED 651 10^3/uL (150-450); RED BLOOD COUNT 3.94 10^6/uL (4.00-5.40); WHITE BLOOD COUNT 15.1 10^3/uL (4.0-10.0)
[2019-06-25 06:41] LABS: BLOOD UREA NITROGEN 30 MG/DL (7-18); CALCIUM LEVEL 9.9 MG/DL (8.8-10.2); CARBON DIOXIDE LEVEL 26 MEQ/L (21-32); CHLORIDE LEVEL 103 MEQ/L (98-107); CREATININE FOR GFR 0.69 MG/DL (0.55-1.30); GLOMERULAR FILTRATION RATE > 60.0 (>32); GLUCOSE, FASTING 117 MG/DL (70-100); POTASSIUM SERUM 3.9 MEQ/L (3.5-5.1); SODIUM LEVEL 138 MEQ/L (136-145)
[2019-06-25] MEDS: ONDANSETRON 4 MG TAB (S0181) PO PRN (07:02)
[2019-06-25] MEDS: ENOXAPARIN 40 MG/0.4 ML SYRINGE (J1650) SC SCH (09:00)
[2019-06-25] MEDS: LACTOBACILLUS ACIDOPHILUS CAP (BACID) PO SCH (09:09)
[2019-06-25] MEDS: SODIUM CHLORIDE 1 GM TAB PO SCH (09:09)
[2019-06-25 09:10] VITALS: BP 149/72
[2019-06-25] MEDS: ATENOLOL 50 MG TAB PO SCH (09:10)
[2019-06-25] MEDS: ASPIRIN 325 MG TAB PO SCH (09:10)
--- NOTE | 2019-06-25 11:26 | DS.PDOC ---
Discharge Summary General Date of Admission Jun 12, 2019 at 10:43 Date of Discharge 06/25/19 Discharge Summary PROCEDURES PERFORMED DURING STAY: [None]. ADMITTING DIAGNOSES: 1. AMS 2. Hyponatremia 3. UTI DISCHARGE DIAGNOSES: 1. AMS 2. Hyponatremia 3. UTI 4. Bladder mass COMPLICATIONS/CHIEF COMPLAINT: Altered Mental Status, Hyponatremia. HISTORY OF PRESENT ILLNESS: "This is 83 years old white female with past medical history of possibly hypertension, hyperlipidemia, unable to obtained history as nobody is available and patient is altered mental status. As per ED physician, Dr. Pope. She obtained history from her son. He takes care of for her and she was recently diagnosed with UTI on for was being treated. Patient was found to be on the floor for unknown time. And has altered mental status. No other history is available. Patient being admitted with the diagnosis of hyponatremia and UTI, unknown history of drug abuse or alcohol abuse or taking illicit medications" HOSPITAL COURSE: Patient's mental status improved and appear to returned to baseline. CT abdomen/pelvis noted to have a bladder wall mass. Initially planned to do cystoscopy while inpatient but noted to have asymptomatic bacturia. Treatment for UTI was resumed with recommendations from ID. Will treat patient with Cefepime for 7 days total and do cystoscopy for biopsy next friday with Urology. Patient will get IV abx for Pseudomonas UTI as outpatient at [facility] prior to cystoscopy. Information is relayed to physician at receiving facility. It appears that patient and family does not want aggressive intervention, likely will pursue Hospice rather than chemo/surgery post diagnosis. DISCHARGE MEDICATIONS: Please see below. ALLERGIES: Please see below. PHYSICAL EXAMINATION ON DISCHARGE: VITAL SIGNS: Please see below. General: No acute distress, Alert Eyes: Normal sclera, EOMI, AIDAN HENT: Atraumatic, neck supple, moist mucous membranes Cardiovascular: Normal rate, normal rhythm. No murmurs appreciated. Pulmonary: Clear to auscultation b/l, no wheezing GI: Soft, nontender, nondistended Skin: Warm and dry Neuro: CN grossly intact. No focal deficits. Strengths equal b/l. Psych: oriented x 3 LABORATORY DATA: Please see below. IMAGING: CT Abdomen/Pelvis- Impression: 1. Bladder wall mass superiorly which is to the right of midline and about 3.0 x 5.0 x 5.5 cm in greatest diameters. There are irregular margins. No change from the CT 3 weeks ago for this finding. 2. Some air in the bladder, likely related to Cook insertion and small amount of contrast. Findings highly suspicious for a bladder malignancy. This is the non-dependent portion of the bladder. 3. There is no hydronephrosis, hydroureter, renal or ureteral calculi. Calcification in the right kidney is in the cortex not the collecting system but unchanged. 4. Interval development of diffuse colitis, inflammatory changes in the mesentery. There is some ascites. No perforation or free air. ACTIVITY: [As tolerated]. DIET: Regular diet DISCHARGE PLAN: Complete course of Cefepime for UTI Cystoscopy and biopsy with Urology next friday DISPOSITION: Snf Other Long-Term. DISCHARGE INSTRUCTIONS: Complete course of Cefepime for UTI Cystoscopy and biopsy with Urology next friday ITEMS TO FOLLOWUP ON ON OUTPATIENT: None DISCHARGE CONDITION: [Stable]. TIME SPENT ON DISCHARGE: 35 minutes. Vital Signs/I&Os Vital Signs Date Time Temp Pulse Resp B/P (MAP) Pulse Ox O2 Delivery O2 Flow Rate FiO2 06/25/19 09:10 77 149/72 06/25/19 06:00 98.8 18 91 I&O- Last 24 Hours up to 6 AM 06/25/19 06:00 Intake Total 830 ml Output Total 0 ml Balance 830 ml Laboratory Data Labs 24H Laboratory Tests 2 06/25/19 05:45: Immature Granulocyte % (Auto) 2.1, White Blood Count 15.1H, Red Blood Count 3.94L, Hemoglobin 10.8L, Hematocrit 33.7L, Mean Corpuscular Volume 85.5, Mean Corpuscular Hemoglobin 27.4, Mean Corpuscular Hemoglobin Concent 32.0, Red Cell Distribution Width 14.8H, Platelet Count 651H, Neutrophils (%) (Auto) 85.8H, Lymphocytes (%) (Auto) 3.0L, Monocytes (%) (Auto) 8.9H, Eosinophils (%) (Auto) 0.0, Basophils (%) (Auto) 0.2, Neutrophils # (Auto) 12.9H, Lymphocytes # (Auto) 0.5L, Monocytes # (Auto) 1.3H, Eosinophils # (Auto) 0.0, Basophils # (Auto) 0.0, Nucleated Red Blood Cells % (auto) 0.0, Anion Gap 9, Glomerular Filtration Rate > 60.0, Blood Urea Nitrogen 30H, Creatinine 0.69, Sodium Level 138, Potassium Level 3.9, Chloride Level 103, Carbon Dioxide Level 26, Calcium Level 9.9 CBC/BMP Laboratory Tests 06/25/19 05:45 Red Blood Count 3.94 L, Mean Corpuscular Volume 85.5, Mean Corpuscular Hemoglobin 27.4, Mean Corpuscular Hemoglobin Concent 32.0, Red Cell Distribution Width 14.8 H, Neutrophils (%) (Auto) 85.8 H, Lymphocytes (%) (Auto) 3.0 L, Monocytes (%) (Auto) 8.9 H, Eosinophils (%) (Auto) 0.0, Basophils (%) (Auto) 0.2, Neutrophils # (Auto) 12.9 H, Lymphocytes # (Auto) 0.5 L, Monocytes # (Auto) 1.3 H, Eosinophils # (Auto) 0.0, Basophils # (Auto) 0.0, Calcium Level 9.9 Microbiology Microbiology 06/21/19 Blood Culture - Preliminary, Resulted No Growth after 72 hours. All specime... 06/21/19 Urine Culture - Final, Complete Pseudomonas Aeruginosa Discharge Medications Scheduled Aspirin (Aspirin) 325 Mg Tablet, 325 MG PO DAILY, (Reported) Atenolol (Atenolol) 50 Mg Tab, 50 MG PO DAILY, (Reported) Calcium Carbonate/Vitamin D3 (Calcium 500-Vit D3 600 Tablet) 1 Each Tablet, 1 TAB PO BID, (Reported) Hydrochlorothiazide (Hydrochlorothiazide) 25 Mg Tablet, 25 MG PO DAILY, (Reported) Multivitamin (Multi-Vitamin Daily) 1 Tab Tab, 1 TAB PO DAILY, (Reported) Potassium Chloride (Potassium Chloride) 10 Meq Tablet.er, 20 MEQ PO DAILY, (Reported) Allergies Coded Allergies: No Known Allergies (Unverified , 06/12/19) GENE SANTIZO MD Jun 25, 2019 11:26
== END 2019-06-25 10:44 | DRG 640 ==
LOC: EDBD 07:00 → M ED 07:00 → M ED INP 10:43 → M ICU 15:57 → M MSPAV 06-14 16:29
PROVIDERS: ADMIT Internal Medicine; ATTEND Student in an Organized Health Care Education/Training Program
DX: E87.1 Hypo-osmolality and hyponatremia (principal); G93.41 Metabolic encephalopathy; N39.0 Urinary tract infection, site not specified; C67.9 Malignant neoplasm of bladder, unspecified; I10 Essential (primary) hypertension; E78.5 Hyperlipidemia, unspecified; Z79.82 Long term (current) use of aspirin; Z79.899 Other long term (current) drug therapy